=== PATIENT | male | born 1945 | race Caucasian/White ===

== ENCOUNTER → 2017-07-24 | Outpatient (CLI) | payer MEDICARE, BC ==
[~2017-07-24] MED LIST: REGADENOSON 0.4 MG/5 ML DISP.SYRIN. IV ONE
--- NOTE | 2017-07-24 13:40 | RAD ---
MR#: [id number] Date of Study: 07/24/2017 Ordering Physician: AVINASH PARRISH, Referring Physician: LIBIA MONTEJO Tech: SATISH Parra ARRT (R) (N) APPROVED REPORT Test Type: Pharmacological Stress Nurse/Tech: Paz Barrientos R.N. Test Indications: high calcium score Cardiac History: dm, family hx of cad Medications: see ehr Medical History: see ehr Resting ECG: sr Resting Heart Rate: 76 bpm Resting Blood Pressure: 138/70mmHg Pretest Chest Pain: No chest pain Nurse/Tech Notes lungs cta, heart tones regular, good radial pulse Consent: The procedure was explained to the patient in lay terms. Informed consent was witnessed. Neil eout was entered into [employer]. History and Stress Test performed by RT Ingrid Gregorio) (N) Pharm. Details Pharmacologic stress testing was performed using 0.4mg per 5ml of regadenoson given intravenously ove r 7-10 seconds. Stress Symptoms No chest pain or symptoms. POST EXERCISE Reason for Termination: Infusion complete Target HR: No Max HR: 105 bpm Max Blood Pressure: 165/74mmHg Chest Pain: No. Arrhythmia: Yes. PAC noted ST Change: No. INTERPRETATION Stress EKG Conclusion: Baseline EKG showed sinus rhythm. No ischemic changes at peak stress. No arr hythmias. Imaging Protocol IMAGE PROTOCOL: Rest Tc-99m/stress Tc-99m 1 day Rest: Stress: Viability: Radiopharm.Tc99m VcxqohctkPq28e Sestamibi Dose11.4mCi 33mCi Img Date 07/24/2017 07/24/2017 Inj-Img Alpn47hjr. 60min. Rest Admin Site:IV - Right AntecubitalAdministrator:SATISH Parra ARRT (R)(N) Stress Admin Site: IV - Right AntecubitalAdministrator: RT Ingrid Gregorio)(N) STRESS DATA End Diast. Vol.64.0mlAv. Heart Rate84.0bpm End Syst. Vol.20.0mlCO Index BSA0.0L/min Myocardial Isdn466.0gEject. Gqxkylik29.0% Stress Rates Pk. Fill Rate4.77EDV/secLVtime Pk. Fill 212.73msec Pk. Empty Rate5.00ESV/secLVtime Pk. Eject90.35msec 1/3 Pk. Fill0.74EDV/sec Stress Scores Regional WT0.00Summed WT0.00 Regional WM0.00Summed WM4.00 Study quality was good. Left Ventricular size was Normal at Rest and Stress. Lung uptake was Normal. Left Ventricular ejection fraction is 69%. The rest and stress images show normal perfusion, normal contraction and thickening. LV Perf. Quant 17 Seg. SSS4.00 17 Seg. SRS3.00 17 Seg. SDS3.00 Stress Defect Extent (% LAD)0.00Rest Defect Extent (% LAD)0.00Rev. Defect Extent (% LAD)0.00 Stress Defect Extent (% LCX) 22.50Rest Defect Extent (% LCX)10.00Rev. Defect Extent (% LCX)8.80 Stress Defect Extent (% RCA)0.00Rest Defect Extent (% RCA)11.10Rev. Defect Extent (% RCA)0.00 Stress Defect Extent (% CALISTA)4.80Rest Defect Extent (% CALISTA)5.00Rev. Defect Extent (% CALISTA)2.00 Conclusion 1. Regadenoson cardioisotope stress test did not show any evidence of ischemia or infarct. 2. Normal left ventricular systolic function with ejection fraction calculated at 69%. 3. Low risk for cardiac events. Signed by : Avinash Parrish, Electronically Approved : 07/24/2017 13:40:36
--- NOTE | 2017-07-24 14:54 | CARD ---
MR#: [id number] Date of Study: 07/24/2017 Ordering Physician: AVINASH CHUNG, Referring Physician: AVINASH CHUNG, Tech: APPROVED REPORT EXAM: Two-dimensional and M-mode echocardiogram with Doppler and color Doppler. Other Information Quality : Average INDICATION CAD 2D DIMENSIONS Left Atrium(2D)2.9 (1.6-4.0cm)IVSd1.1 (0.7-1.1cm) Aortic Root(2D)3.3 (2.0-3.7cm)LVDd4.4 (3.9-5.9cm) LVOT Diameter2.0 (1.8-2.4cm)PWd1.1 (0.7-1.1cm) LVDs2.9 (2.5-4.0cm)FS (%) 32.5 % SV52.2 mlLVEF(%)61.1 (>50%) Aortic Valve AoV Peak Jh.103.2cm/sAoV VTI23.8cm AO Peak GR.4.3mmHgLVOT Peak Jh.83.7cm/s LVOT VTI 19.36cmAO Mean GR.3mmHg EVGENY (VMAX)1.36gu3XZM (VTI)2.56cm2 Mitral Valve MV E Ldjjhogh28.3cm/sMV DECEL ZFAT535tr MV A Imleypgi66.7cm/sMV QNC81dm E/A Ratio0.7MVA (PHT)5.60cm2 TDI E/Lateral E'7.6E/Medial E'8.7 Tricuspid Valve TR P. Lgxytgjk046bg/sRAP CREPQLXG4gzNq TR Peak Gr.89ycRzZMAG78vyPz LEFT VENTRICLE The left ventricle is normal size. There is normal left ventricular wall thickness. Left ventricle sy stolic function is normal. The Ejection Fraction is 50-55%. There is normal LV segmental wall motion. Transmitral Doppler flow pattern is Grade I-abnormal relaxation pattern. RIGHT VENTRICLE The right ventricle is normal size. The right ventricular systolic function is normal. ATRIA The left atrium size is normal. The right atrium size is normal. The interatrial septum is intact wit h no evidence for an atrial septal defect or patent foramen ovale as noted on 2-D or Doppler imaging. AORTIC VALVE The aortic valve is mildly calcified. Doppler and Color Flow revealed no significant aortic regurgita tion. There is no significant aortic valvular stenosis. MITRAL VALVE The mitral valve is calcified but opens well. There is no evidence of mitral valve prolapse. There is no mitral valve stenosis. Doppler and Color-flow revealed mild mitral regurgitation. TRICUSPID VALVE The tricuspid valve is normal in structure and function. Doppler and Color Flow revealed trace tricus pid regurgitation. There is no pulmonary hypertension. The PA pressure was estimated at 19 mmHg. Ther e is no tricuspid valve prolapse or vegetation. PULMONIC VALVE The pulmonic valve is borderline thickened. Doppler and Color Flow revealed mild pulmonic valvular re gurgitation. There is no pulmonic valvular stenosis. GREAT VESSELS The aortic root is normal in size. The ascending aorta is normal in size. The IVC is normal in size a nd collapses >50% with inspiration. PERICARDIAL EFFUSION There is no pleural effusion. There is no evidence of significant pericardial effusion. Critical Notification Critical Value: No <Conclusion> Left ventricle systolic function is normal. The Ejection Fraction is 50-55%. There is normal LV segmental wall motion. Transmitral Doppler flow pattern is Grade I-abnormal relaxation pattern. Mld mitral regurgitation. Trace tricuspid regurgitation. The PA pressure was estimated at 19 mmHg. There is no evidence of significant pericardial effusion. Signed by : Avinash Chung, Electronically Approved : 07/24/2017 14:53:10
== END | disposition home or self-care (01) ==
LOC: NM 07:42
PROVIDERS: ATTEND Internal Medicine Cardiovascular Disease
DX: I08.1 Rheumatic disorders of both mitral and tricuspid valves (principal); I25.10 Atherosclerotic heart disease of native coronary artery without angina pectoris; R93.1 Abnormal findings on diagnostic imaging of heart and coronary circulation
CPT/HCPCS: 78452; 93017; 93306; 96374; 96375; 96376; A9500; J2785

== ENCOUNTER → 2018-12-03 | Outpatient (CLI) | payer MEDICARE, BC ==
--- NOTE | 2018-12-03 09:41 | CARD ---
MR#: [id number] Date of Study: 12/03/2018 Ordering Physician: AVINASH CHUNG, Referring Physician: AVINASH CHUNG Tech: Rhonda Wilkerson RDCS APPROVED REPORT EXAM: Two-dimensional and M-mode echocardiogram with Doppler and color Doppler. Other Information Quality : AverageHR: 67bpm Rhythm : NSR INDICATION Hypertension/HCVD 2D DIMENSIONS RVDd2.5 (2.9-3.5cm)Left Atrium(2D)2.7 (1.6-4.0cm) IVSd1.0 (0.7-1.1cm)Aortic Root(2D)3.9 (2.0-3.7cm) LVDd4.1 (3.9-5.9cm)LVOT Diameter2.2 (1.8-2.4cm) PWd1.0 (0.7-1.1cm)LVDs2.9 (2.5-4.0cm) FS (%) 29.3 %SV43.2 ml LVEF(%)56.7 (>50%) M-Mode DIMENSIONS Left Atrium(MM)2.58 (2.5-4.0cm)Aortic Root3.67 (2.2-3.7cm) Aortic Valve AoV Peak Jh.122.2cm/sAoV VTI26.0cm AO Peak GR.6.0mmHgLVOT Peak Jh.75.4cm/s AO Mean GR.3mmHgAVA (VMAX)2.44cm2 EVGENY (VTI)2.40cm2 Mitral Valve MV E Nfzrfglw12.5cm/sMV DECEL YNNI185ca MV A Tnevoaon31.4cm/sE/A Ratio0.6 MV A Tfhmgbqg331ac Pulmonary Valve PV Peak Saaylqrn46.2cm/s Tricuspid Valve TR P. Xjayfnap513kw/sRAP CXRDJSYO6dpBj TR Peak Gr.53dlYcSFYI74yxJo LEFT VENTRICLE The left ventricle is normal size. There is normal left ventricular wall thickness. The left ventricu lar systolic function is normal. The Ejection Fraction is 55-60%. There is normal LV segmental wall m otion. Transmitral Doppler flow pattern is Grade I-abnormal relaxation pattern. RIGHT VENTRICLE The right ventricle is normal size. There is normal right ventricular wall thickness. The right ventr icular systolic function is normal. ATRIA The left atrium size is normal. The right atrium size is normal. The interatrial septum is intact wit h no evidence for an atrial septal defect or patent foramen ovale as noted on 2-D or Doppler imaging. AORTIC VALVE The aortic valve is normal in structure and function. The aortic valve is trileaflet. Doppler and Col or Flow revealed no significant aortic regurgitation. There is no significant aortic valvular stenosi s. There is no aortic valvular vegetation. MITRAL VALVE The mitral valve is normal in structure and function. There is no evidence of mitral valve prolapse. There is no mitral valve stenosis. Doppler and Color-flow revealed trace to mild mitral regurgitation . TRICUSPID VALVE The tricuspid valve is normal in structure and function. Doppler and Color Flow revealed trace tricus pid regurgitation. The PA pressure was estimated at 32 mmHg. There is no tricuspid valve prolapse or vegetation. There is no tricuspid valve stenosis. PULMONIC VALVE The pulmonary valve is normal in structure and function. Doppler and Color Flow revealed trace pulmon ic valvular regurgitation. There is no pulmonic valvular stenosis. GREAT VESSELS The aortic root is mildly enlarged. The ascending aorta is normal in size. The IVC is normal in size and collapses >50% with inspiration. PERICARDIAL EFFUSION There is no evidence of significant pericardial effusion. Critical Notification Critical Value: No <Conclusion> The left ventricular systolic function is normal. The Ejection Fraction is 55-60%. There is normal LV segmental wall motion. Transmitral Doppler flow pattern is Grade I-abnormal relaxation pattern. Trace to mild mitral regurgitation. Trace tricuspid regurgitation. The PA pressure was estimated at 32 mmHg. There is no evidence of significant pericardial effusion. Signed by : Avinash Chung, Electronically Approved : 12/03/2018 09:40:56
== END | disposition home or self-care (01) ==
LOC: ECHO 08:38
PROVIDERS: ATTEND Internal Medicine Cardiovascular Disease
DX: I34.0 Nonrheumatic mitral (valve) insufficiency (principal); I11.9 Hypertensive heart disease without heart failure
CPT/HCPCS: 93306

== ENCOUNTER 2019-06-07 13:56 | Inpatient (IN) | payer MEDICARE, BC ==
[~2019-06-07 13:56] MED LIST changes: +ACYC400T PO; +ASCO-78 PO; +ATOR40TA59 PO; +BRIM5DRO2 OP; +CHOL100013 PO; +DICL100G18 TP; +INSU100I32 SQ; +INSU100V31 SQ; +METF500T11 PO; +MULT-245 PO; +NITR0.4T24 SL; +PRED15SO24 PO; +PRED5DRO16 OP; -REGADENOSON 0.4 MG/5 ML DISP.SYRIN. IV ONE; +SIMV20TA18 PO; +TICA90TA PO
[2019-06-07] MEDS ORDERED: DEXTROSE 50% 25 GM / 50ML DISP.SYRIN. IV PRN (17:00)
[2019-06-07] MEDS ORDERED: IV DEXTROSE 5% 250 ML BAG. IV PRN (17:00)
[2019-06-07 17:02] VITALS: BP 142/68
[2019-06-07 19:25] VITALS: BP 132/73
[2019-06-07] MEDS ORDERED: NITROGLYCERIN SUBLINGUAL 0.4 MG BOTTLE OF 25. SL PRN (20:45)
[2019-06-07] MEDS: TIMOLOL 0.5% OPHTH SOLUTION 5ML BOTTLE. OU SCH (21:00)
[2019-06-07] MEDS: DICLOFENAC SODIUM 1% TOPICAL GEL 100GM TUBE. TP SCH (21:00)
[2019-06-07] MEDS: BRIMONIDINE 0.2% OPHTH SOLUTION 5ML BOTTLE. OU SCH (21:00)
[2019-06-07] MEDS: ACYCLOVIR 200 MG CAPSULE. PO SCH (21:00)
[2019-06-07] MEDS: ATORVASTATIN CALCIUM 40 MG TABLET. PO SCH (21:00)
[2019-06-07] MEDS: TICAGRELOR 90 MG TABLET. PO SCH (21:00)
[2019-06-07] MEDS: INSULIN GLARGINE SYRINGE. SQ SCH (21:29)
[2019-06-07 23:25] VITALS: BP 140/78
[2019-06-08 03:25] VITALS: BP 141/76
[2019-06-08 03:44] LABS: BASO % 0 % (0-3); EOS % 1 % (0-3); HEMOGLOBIN 13.3 g/dL (13.0-17.5); LYMPH % 11 % (24-48); MEAN CORPUSCULAR HEMOGLOBIN 32 pg (25-35); MEAN CORPUSCULAR HGB CONC 35 g/dL (31-37); MEAN CORPUSCULAR VOLUME 92 fL (79-100); MONO # 0.5 x10^3/uL (0.0-1.1); MONO % 5 % (0-9); NEUT % 83 % (31-73); PLATELET COUNT 194 x10^3/uL (140-400); RED BLOOD COUNT 4.14 x10^6/uL (4.30-5.70); RED CELL DISTRIBUTION WIDTH 14.6 % (11.5-14.5); WHITE BLOOD COUNT 9.6 x10^3/uL (4.0-11.0)
[2019-06-08 04:09] LABS: ALBUMIN 3.3 g/dL (3.4-5.0); ALBUMIN/GLOBULIN RATIO 1.2 (1.0-1.7); CALCIUM 8.4 mg/dL (8.5-10.1); CREATININE 1.1 mg/dL (0.7-1.3); POTASSIUM 4.1 mmol/L (3.5-5.1); TOTAL BILIRUBIN 0.5 mg/dL (0.2-1.0); TOTAL PROTEIN 6.1 g/dL (6.4-8.2)
[2019-06-08 07:15] VITALS: BP 128/63
[2019-06-08] MEDS: INSULIN LISPRO 300 UNITS/3 ML VIAL. SQ SCH ×3 (08:00→18:00)
[2019-06-08] MEDS: BRIMONIDINE 0.2% OPHTH SOLUTION 5ML BOTTLE. OU SCH ×2 (09:00→21:50)
[2019-06-08] MEDS ORDERED: PREDNISOLONE ACETATE OP SCH (09:00)
[2019-06-08] MEDS: DICLOFENAC SODIUM 1% TOPICAL GEL 100GM TUBE. TP SCH ×2 (09:00→21:00)
[2019-06-08] MEDS: TIMOLOL 0.5% OPHTH SOLUTION 5ML BOTTLE. OU SCH ×2 (09:00→21:50)
[2019-06-08] MEDS: TICAGRELOR 90 MG TABLET. PO SCH ×2 (09:25→21:48)
[2019-06-08] MEDS: ACYCLOVIR 200 MG CAPSULE. PO SCH ×2 (09:26→21:48)
[2019-06-08] MEDS: CHOLECALCIFEROL (VITAMIN D3) 1,000 UNIT TABLET PO SCH (09:26)
[2019-06-08] MEDS: metFORMIN XR 500 MG TAB.ER.24H PO SCH (09:26)
[2019-06-08] MEDS: MULTIVITAMIN with MINERAL TABLET. PO SCH (09:26)
[2019-06-08] MEDS: ASCORBIC ACID 500 MG TABLET PO SCH (09:26)
--- NOTE | 2019-06-08 10:54 | NUR ---
SW following pt for dc planning. Chart reviewed. Pt lives at home with family. PT/OT/ST ordered. No other notes to review at this time. SW will be available as needed.
[2019-06-08 11:02] VITALS: BP 151/74
--- NOTE | 2019-06-08 11:08 | HP ---
ADMIT DATE: HISTORY OF PRESENT ILLNESS: The patient is a 73-year-old male patient who was brought to the Emergency Room of [facility] with a complaint of being dizzy, lightheaded, and vomiting. The patient woke up this morning while he was pulling up his pants, he heard a popping sound in his ear. He began to get very dizzy, which he describes as a room spinning sensation. This was followed by vomiting. He was feeling normal prior to this episode. He recently had a corneal transplant last week. He has had a heart attack earlier this year. He denied any shortness of breath, chest pain, or diaphoresis. According to his , the patient became unable to walk. She tried to help him and his brother came also to help him, but they could not and therefore, they called the ambulance and was brought to the Emergency Room of [facility] where he was evaluated. When he arrived there, he was still dizzy and vomiting. He was extensively investigated there and his CT scan of the head showed that he has mild bilateral periventricular white matter hypodensities, likely chronic, small vessel ischemic disease, no evidence of acute intracranial hemorrhage, no extra-axial fluid collection, no mass effect or midline shift, ventricular size appropriate. Basal cisterns are patent. There is no fracture identified. Cotton-white differentiation is preserved. Globes and orbits are within normal limits. Paranasal sinuses and mastoid air cells are clear and therefore, the patient was transferred to [facility] to do an MRI and to consult the Neurology team. PAST MEDICAL HISTORY: Significant for diabetes mellitus, hypertension, hyperlipidemia, coronary artery disease, status post MN, stent deployment on 03/31/2019. He has also chronic constipation and benign prostatic hypertrophy. He has shingles involving his left eye for which he underwent corneal transplant. He is also known to have glaucoma. PAST SURGICAL HISTORY: Significant for left eye corneal transplant. He had ear surgery, hernia repair, and tonsillectomy. He had also PCI with stent deployment in March of this year. ALLERGIES: He has no known drug allergies. MEDICATIONS: He is currently on the following medications: He apparently gets all his medications from [facility] in [place]. FAMILY HISTORY: He has 1 sister who at age of 52 because of Parkinson disease, complication of diabetes, has 5 brothers, 1 of them has coronary artery disease and open heart surgery and others have peripheral vascular disease. His father at the age of 66 because of diabetes mellitus and mother at age 66 because of complication of surgery. SOCIAL HISTORY: He is , has no children. He quit smoking in 1991. He used to smoke 4 packs a day and smoked since he was 20 years old. He does not drink alcohol or use any recreational drugs. 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 REVIEW OF SYSTEMS: The patient denied any blurring of vision, but he has corneal transplant and glaucoma. Denied any macular degeneration. Denied any earache, tinnitus, or sensorineural deafness. Did hear a pop in his left ear and since then he developed severe dizziness and feels things spinning around and difficulty walking. He did have some nausea and vomiting, but denied any hematemesis, melena, or hematochezia. Did have also a problem with urine retention, required straight catheterization. Denied any chest pain, shortness of breath, orthopnea, or paroxysmal nocturnal dyspnea. Denied any cough, phlegm, or hemoptysis. PHYSICAL EXAMINATION: GENERAL: On arrival to [facility], he was somewhat pale. No jaundice, cyanosis, or thyromegaly. No jugular venous distention. No lower limb edema. VITAL SIGNS: His heart rate was 69, blood pressure was 141/74, temperature was 97.4, respiratory rate was 19, and oxygen saturation was 100% on room air. HEAD, EYES, EARS, NOSE, AND THROAT: Showed normocephalic and atraumatic. NECK: Supple. HEART: Showed normal first and second heart sounds. No gallop or murmur. CHEST: Clear to auscultation. No crepitation or rhonchi. ABDOMEN: Distended, soft, nontender. No guarding or rigidity. No organomegaly. All hernial orifices intact. Bowel sounds normal. 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 EXTREMITIES: He moves extremities without difficulty. He apparently is independent, climbing about [address] in front of their house before, but now he is unable to stand or walk. LABORATORY DATA: He has had lab work done in the Emergency Room showed that his white cell count was 10,000, hemoglobin 13.6, hematocrit 40, MCV 93, and platelet count of 200,000 with normal manual differential. His chemistry showed a serum sodium 141, potassium 4.7, chloride 106, bicarbonate 25, anion gap of 10, BUN 20, creatinine 1.2, and estimated GFR was 59 mL per minute. His glucose was 253 and calcium was 8.6. Total bilirubin, ALT, and alkaline phosphatase were normal. Total protein was 6.4, albumin was 3.6. His toxic screen was negative. His urinalysis was essentially unremarkable. The CT scan of the head showed the patient has mild bilateral periventricular white matter hypodensities, likely chronic small vessel ischemic disease, no evidence of acute intracranial hemorrhage, no extraaxial fluid collection, no mass effect or midline shift, ventricular size appropriate. Basal cisterns are patent. No fracture is identified. Cotton-white differentiation is preserved. Globes and orbits are within normal limits. Paranasal sinuses and mastoid air cells are clear. Therefore, the patient was admitted to [facility] to consult the neurologist and arrange for an MRI as I am concerned that he might have cerebellar stroke given his inability to walk. I will also check his Doppler ultrasound and fasting lipid profile and decide the further management accordingly. TIGRE SONG MD DR: MANISHA/tameka JOB#: [id number] / [id number]
--- NOTE | 2019-06-08 12:22 | RAD ---
EXAM: Carotid Doppler sonogram. HISTORY: Dizziness. TECHNIQUE: Cotton scale and color Doppler sonographic evaluation of the neck with spectral waveform analysis was performed and static images are submitted for review. FINDINGS: There is intimal thickening and atherosclerotic plaque throughout the carotid bifurcations. The peak systolic velocity within the right common carotid artery is 108 cm/sec. The peak systolic velocity within the right internal carotid artery is 85 cm/sec and the end diastolic velocity within the right internal carotid artery is 29 cm/sec. The right ICA/CCA ratio is 0.78. The peak systolic velocity within the left common carotid artery is 114 cm/sec. The peak systolic velocity within the left internal carotid artery is 85 cm/sec and the end diastolic velocity within the left internal carotid artery is 29 cm/sec. The left ICA/CCA ratio is 0.75. There is normal antegrade flow within both vertebral arteries. IMPRESSION: No Doppler evidence of hemodynamically significant stenosis within the carotid or internal carotid arteries. PQRS Compliance Statement - Stenosis calculations for CT, MR and conventional angiography are based upon measurement of the distal ICA diameter in accordance with the NASCET methodology. Stenosis calculations for carotid ultrasound studies are derived from validated velocity criteria which are known to correlate with the NASCET methodology. Electronically signed by: Thania Crouch MD (06/08/2019 12:18 PM) [place] [id number]
[2019-06-08 15:15] VITALS: BP 151/71
--- NOTE | 2019-06-08 15:16 | PDOC2 ---
NEUROLOGY CONSULT Date of Admission Date of Admission DATE: 06/08/19 TIME: 15:01 Reason for Consult Reason for Consult: IMPRESSION: Persistent dizziness since 06/07/19. DM. HTN. HLD. Recent STEMI in 03/21 s/p stent placement. Left eye s/p surgery with dilated pupil since. Cognitive impairment. RECOMMENDATIONS/PLAN: He has been treated with Ticagrelol. Continue Lipitor HS. Brain MRI w/o contrast. Lab: see orders. Treat medical diseases. Discussed with his and son at bedside on 06/08/19. HISTORY OF THE PRESENT ILLNESS: This is a 73-year-old male patient with recent STEMI with cardiac stent placement in 03/21. He developed symptoms of severe dizziness associated with nausea and vomiting on 06/07/19. He was noted to have perspiration during his episodes of dizziness. His symptoms persistent and he is still not able to stand up or walk on 06/08/19. So Neurology was requested for consultation. PAST MEDICAL HISTORY: Diabetes mellitus, hypertension, hyperlipidemia, coronary artery disease, status post NJ, stent deployment on 03/31/2019. He has also chronic constipation and benign prostatic hypertrophy. 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 He is also known to have glaucoma. PAST SURGICAL HISTORY: Left eye corneal transplant. He had ear surgery, hernia repair, and tonsillectomy. He had also PCI with stent deployment in March of this year. ALLERGIES: No known drug allergies. FAMILY HISTORY: His sister at age of 52 because of Parkinson disease, complication of diabetes, has 5 brothers, 1 of them has coronary artery disease and open heart surgery and others have peripheral vascular disease. His father at the age of 66 because of diabetes mellitus and mother at age 66 because of complication of surgery. SOCIAL HISTORY: He is , has no children. He quit smoking in 1991. He used to smoke 4 packs a day and smoked since he was 20 years old. He does not drink alcohol or use any recreational drugs. 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 MEDICATIONS: Refer to MAR REVIEW OF SYSTEMS: Constitutional: No malnutrition, weight loss, cachexia. Head: No traumatic brain or head injury. Skin: No edema, or rash. Ear: No infection. Eyes: No vision loss or color blindness. Nose: No bleeding or purulent discharges. Hearing: No hearing decrease. Neck: No injury. Cardiac: NJ, CAD, HTN, HLD. Pulmonary: No COPD. GI: No GI ulcer, GI bleeding. Urinary/genital: No dysuria, incontinence, urinary retention. Endocrinologic: Diabetes Mellitus. Skeletomuscular: No muscular atrophy. Neurological: see HP. Psychiatric: Denies drug use/abuse. Otherwise, not [id number] review of systems. PHYSICAL EXAMINATION: General appearance is in subacute distress. HEENT: Normocephalic and nontraumatic. Left pupil dilated s/p surgery. Nose, ears, and throat are unremarkable. Neck is supple. No lymphadenopathy. No bruits are heard over the carotid artery. No crepitus. Cardiovascular: S1, S2, regular rate and rhythm. Pulmonary: Clear to auscultation bilaterally. Abdomen: Bowel sounds are positive. Abdomen is soft, nontender, and nondistended. Extremities: No rash, lesions, or edema. No restriction of range of motion NEUROLOGICAL EXAMINATION: Alert Partially oriented to time, but knew place and person. Right pupil 2 mm reactive to light. Left 4 mm not reactive to light stimulation. EOMI. CN: no focal findings. Muscle tone: within normal. Muscle strength: 5 DTR: 2 Plantar reflex: Neutral response bilaterally Gait: not examined in bed. Sensory exam: no abnormal findings. No cerebellar signs elicited. F-T-N test accurate. Current Medications Current Medications Current Medications Dextrose (Dextrose 50%-Water Syringe) 12.5 gm PRN Q15MIN PRN IV SEE COMMENTS; Start 06/07/19 at 17:00 Dextrose 250 ml PRN Q15MIN PRN IV SEE COMMENTS; Start 06/07/19 at 17:00; Status UNV Atorvastatin Calcium (Lipitor) 40 mg QHS PO ; Start 06/07/19 at 21:00 Diclofenac Sodium (Voltaren) 1 amy BID TP ; Start 06/07/19 at 21:00 Metformin HCl (Glucophage Xr) 500 mg DAILYWBKFT PO Last administered on 06/08/19at 09:26; Start 06/08/19 at 08:00 Nitroglycerin (Nitrostat) 0.4 mg PRN Q5MIN PRN SL CHEST PAIN; Start 06/07/19 at 20:45 Ticagrelor (Brilinta) 90 mg BID PO Last administered on 06/08/19 09:25; Start 06/07/19 at 21:00 Acyclovir (Zovirax) 400 mg BID PO Last administered on 06/08/19 09:26; Start 06/07/19 at 21:00 Ascorbic Acid (Vitamin C) 500 mg DAILY PO Last administered on 06/08/19 09:26; Start 06/08/19 at 09:00 Brimonidine Tartrate (Alphagan) 1 drop BID OU ; Start 06/07/19 at 21:00 Vitamin D (Vitamin D3) 1,000 unit DAILY PO Last administered on 06/08/19 09:26; Start 06/08/19 at 09:00 Insulin Human Lispro (HumaLOG) 3 units TIDWMEALS SQ Last administered on 06/08/19 13:25; Start 06/08/19 at 08:00 Insulin Glargine (Lantus Syringe) 9 unit QHS SQ Last administered on 06/07/19 21:29; Start 06/07/19 at 21:00 Multivitamins (Thera M Plus) 1 tab DAILY PO Last administered on 06/08/19 09:26; Start 06/08/19 at 09:00 Non-Formulary Medication (Prednisolone Acetate ) 5 ml DAILY OP ; Start 06/08/19 at 09:00; Status UNV Timolol Maleate (Timoptic 0.5% Ophth) 1 drop BID OU ; Start 06/07/19 at 21:00 Active Scripts Active Nitrostat (Nitroglycerin) 0.4 Mg Tab.subl 0.4 Mg SL PRN Q5MIN PRN Atorvastatin Calcium 40 Mg Tablet 40 Mg PO QHS Brilinta (Ticagrelor) 90 Mg Tablet 90 Mg PO BID Reported Prednisolone Acetate 5 Ml Drops.susp 5 Ml OP DAILY Voltaren (Diclofenac Sodium) 100 Gm Gel..gram. 1 Gm TP BID Multi Vitamin Daily (Multivitamin) 1 Each Tablet 1 Each PO DAILY Vitamin C (Ascorbate Calcium) 500 Mg Tablet 500 Mg PO DAILY Vitamin D (Cholecalciferol (Vitamin D3)) 1,000 Unit Capsule 1 Cap PO DAILY Acyclovir 400 Mg Tablet 400 Mg PO BID Combigan Eye Drops (Brimonidine Tartrate/Timolol) 5 Ml Drops 5 Ml OP BID Basaglar Kwikpen U-100 (Insulin Glargine,Hum.rec.anlog) 100 Unit/1 Ml Insuln.pen 9 Unit SQ HS Novolog (Insulin Aspart) 100 Unit/1 Ml Vial 3 Unit SQ TIDWMEALS Metformin Hcl Er (Metformin Hcl) 500 Mg Tab.er.24h 500 Mg PO DAILYWBKFT Allergies Allergies: Allergies Coded Allergies Type Severity Reaction Last Updated Verified No Known Drug Allergies 07/24/17 No ROS Review of System The patient denies any associated fevers, chills, headache, ear pain, rhinorrhea, sore throat, stiff neck, productive cough, chest pain, shortness of breath, back or flank pain, abdominal pain, nausea, vomiting, diarrhea, constipation, dysuria, rash, numbness, weakness, tingling, incontinence, difficulty ambulating, or diaphoresis. Physical Exam Physical Exam General: Well developed, well nourished, no acute distress, well appearing HEENT: Pupils equally round and reactive to light, EOMI, no discharge, normal conjunctiva Neck: Supple, no nuchal rigidity, no JVD, trachea midline, no tenderness Cardiac: RRR, no murmurs, no gallops, no rubs Chest/Lungs: CTAB, no wheeze, no rhonchi, no crackles Abdomen: soft, non-distended, no guarding, no peritoneal signs, non-tender Back: No tenderness Extremities: no edema, pulses intact, non-tender,capillary refill <3 sec bilateral upper and lower extremities, Neuro: Alert and oriented x 4, no focal deficits, normal speech Vitals Vitals: Vital Signs Date Time Temp Pulse Resp B/P (MAP) Pulse Ox O2 Delivery O2 Flow Rate FiO2 06/08/19 11:02 98.3 97 20 151/74 (99) 94 Room Air 98.3 Labs Labs Laboratory Tests Test 06/07/19 16:58 06/07/19 21:17 06/08/19 03:20 06/08/19 08:09 Glucose (Fingerstick) 133 mg/dL (70-99) 132 mg/dL (70-99) 146 mg/dL (70-99) White Blood Count 9.6 x10^3/uL (4.0-11.0) Red Blood Count 4.14 x10^6/uL (4.30-5.70) Hemoglobin 13.3 g/dL (13.0-17.5) Hematocrit 38.0 % (39.0-53.0) Mean Corpuscular Volume 92 fL (79-100) Mean Corpuscular Hemoglobin 32 pg (25-35) Mean Corpuscular Hemoglobin Concent 35 g/dL (31-37) Red Cell Distribution Width 14.6 % (11.5-14.5) Platelet Count 194 x10^3/uL (140-400) Neutrophils (%) (Auto) 83 % (31-73) Lymphocytes (%) (Auto) 11 % (24-48) Monocytes (%) (Auto) 5 % (0-9) Eosinophils (%) (Auto) 1 % (0-3) Basophils (%) (Auto) 0 % (0-3) Neutrophils # (Auto) 8.0 x10^3/uL (1.8-7.7) Lymphocytes # (Auto) 1.0 x10^3/uL (1.0-4.8) Monocytes # (Auto) 0.5 x10^3/uL (0.0-1.1) Eosinophils # (Auto) 0.0 x10^3/uL (0.0-0.7) Basophils # (Auto) 0.0 x10^3/uL (0.0-0.2) Sodium Level 142 mmol/L (136-145) Potassium Level 4.1 mmol/L (3.5-5.1) Chloride Level 108 mmol/L (98-107) Carbon Dioxide Level 24 mmol/L (21-32) Anion Gap 10 (6-14) Blood Urea Nitrogen 18 mg/dL (8-26) Creatinine 1.1 mg/dL (0.7-1.3) Estimated GFR (Cockcroft-Gault) 66.0 BUN/Creatinine Ratio 16 (6-20) Glucose Level 176 mg/dL (70-99) Calcium Level 8.4 mg/dL (8.5-10.1) Total Bilirubin 0.5 mg/dL (0.2-1.0) Aspartate Amino Transf (AST/SGOT) 15 U/L (15-37) Alanine Aminotransferase (ALT/SGPT) 19 U/L (16-63) Alkaline Phosphatase 75 U/L (46-116) Total Protein 6.1 g/dL (6.4-8.2) Albumin 3.3 g/dL (3.4-5.0) Albumin/Globulin Ratio 1.2 (1.0-1.7) Triglycerides Level 74 mg/dL (0-150) Cholesterol Level 118 mg/dL (0-200) LDL Cholesterol, Calculated 64 mg/dL (0-100) VLDL Cholesterol, Calculated 15 mg/dL (0-40) Non-HDL Cholesterol Calculated 79 mg/dL (0-129) HDL Cholesterol 39 mg/dL (40-60) Cholesterol/HDL Ratio 3.0 Vitamin B12 Level 410 pg/mL (247-911) Thyroid Stimulating Hormone (TSH) 1.386 uIU/mL (0.358-3.74) Test 06/08/19 11:33 Glucose (Fingerstick) 249 mg/dL (70-99) Laboratory Tests Test 06/07/19 16:58 06/07/19 21:17 06/08/19 03:20 06/08/19 08:09 Glucose (Fingerstick) 133 mg/dL (70-99) 132 mg/dL (70-99) 146 mg/dL (70-99) White Blood Count 9.6 x10^3/uL (4.0-11.0) Red Blood Count 4.14 x10^6/uL (4.30-5.70) Hemoglobin 13.3 g/dL (13.0-17.5) Hematocrit 38.0 % (39.0-53.0) Mean Corpuscular Volume 92 fL (79-100) Mean Corpuscular Hemoglobin 32 pg (25-35) Mean Corpuscular Hemoglobin Concent 35 g/dL (31-37) Red Cell Distribution Width 14.6 % (11.5-14.5) Platelet Count 194 x10^3/uL (140-400) Neutrophils (%) (Auto) 83 % (31-73) Lymphocytes (%) (Auto) 11 % (24-48) Monocytes (%) (Auto) 5 % (0-9) Eosinophils (%) (Auto) 1 % (0-3) Basophils (%) (Auto) 0 % (0-3) Neutrophils # (Auto) 8.0 x10^3/uL (1.8-7.7) Lymphocytes # (Auto) 1.0 x10^3/uL (1.0-4.8) Monocytes # (Auto) 0.5 x10^3/uL (0.0-1.1) Eosinophils # (Auto) 0.0 x10^3/uL (0.0-0.7) Basophils # (Auto) 0.0 x10^3/uL (0.0-0.2) Sodium Level 142 mmol/L (136-145) Potassium Level 4.1 mmol/L (3.5-5.1) Chloride Level 108 mmol/L (98-107) Carbon Dioxide Level 24 mmol/L (21-32) Anion Gap 10 (6-14) Blood Urea Nitrogen 18 mg/dL (8-26) Creatinine 1.1 mg/dL (0.7-1.3) Estimated GFR (Cockcroft-Gault) 66.0 BUN/Creatinine Ratio 16 (6-20) Glucose Level 176 mg/dL (70-99) Calcium Level 8.4 mg/dL (8.5-10.1) Total Bilirubin 0.5 mg/dL (0.2-1.0) Aspartate Amino Transf (AST/SGOT) 15 U/L (15-37) Alanine Aminotransferase (ALT/SGPT) 19 U/L (16-63) Alkaline Phosphatase 75 U/L (46-116) Total Protein 6.1 g/dL (6.4-8.2) Albumin 3.3 g/dL (3.4-5.0) Albumin/Globulin Ratio 1.2 (1.0-1.7) Triglycerides Level 74 mg/dL (0-150) Cholesterol Level 118 mg/dL (0-200) LDL Cholesterol, Calculated 64 mg/dL (0-100) VLDL Cholesterol, Calculated 15 mg/dL (0-40) Non-HDL Cholesterol Calculated 79 mg/dL (0-129) HDL Cholesterol 39 mg/dL (40-60) Cholesterol/HDL Ratio 3.0 Vitamin B12 Level 410 pg/mL (247-911) Thyroid Stimulating Hormone (TSH) 1.386 uIU/mL (0.358-3.74) Test 06/08/19 11:33 Glucose (Fingerstick) 249 mg/dL (70-99) JERRELL VELASQUEZ MD Jun 08, 2019 15:16
--- NOTE | 2019-06-08 16:33 | RAD ---
MRI of the brain without contrast 06/08/2019 Clinical History: Dizziness. Technique: Unenhanced T1-weighted sagittal and axial, T2-weighted axial and coronal and FLAIR, gradient echo and diffusion-weighted axial images of the brain were obtained. Findings: Comparison is made to the patient's CT scan of the head dated 06/07/2019. There is generalized parenchymal atrophy. Patchy, confluent and multiple focal areas of increased signal intensity are seen within the periventricular and subcortical white matter of both cerebral hemispheres on the FLAIR and T2-weighted images consistent with areas of small vessel ischemic disease. Areas of restricted diffusion are seen involving the left aspect of the bret, the left brachium pontis and anterior aspect of the left cerebellum consistent with areas of acute ischemia/infarction. These measure 3 mm to 1.5 cm in size. There is mild surrounding edema without evidence of significant mass effect. No additional acute parenchymal abnormality is seen. No extra-axial fluid collection is noted. Mild mucosal thickening in seen scattered throughout the paranasal sinuses. Normal flow voids are seen within the major vascular structures surrounding the brain parenchyma. On the sagittal images of the brain incomplete segmentation is seen involving the C2-3 vertebrae, anteriorly. A focal central disc osteophyte complex is seen at C3-4 which measures approximately 4 mm in AP diameter. This appears to result in moderate to severe central spinal canal stenosis with moderate to severe cord impingement. Impression: Areas of acute ischemia/infarction are seen involving the left aspect of the bret, left brachium pontis and the anterior left cerebellar hemisphere. There is surrounding edema without significant mass effect. These findings were discussed with the patient's nurse. FOR INTERNAL CODING PURPOSES RESULT CODE: (C) Electronically signed by: Galen Benson MD (06/08/2019 4:31 PM) [id number]
--- NOTE | 2019-06-08 16:33 | NUR ---
Left message with answering service for Karoline, message received from MRI acute stroke in left cerebellum and bret. Dr Soliman was informed as well
[2019-06-08] MEDS: ASPIRIN CHEWABLE 81 MG TABLET. PO SCH (17:52)
--- NOTE | 2019-06-08 19:18 | PDOC2 ---
NEUROLOGY CONSULT Date of Admission Date of Admission DATE: 06/08/19 TIME: 19:11 Reason for Consult Reason for Consult: Acute/subacute in left brachium pontis, and left cerebellar, multiple. Persistent dizziness since am of 06/07/19. Metabolic encephalopathy. DM. Hyperglycemia. HTN. HLD. CAD. Recent STEMI in 03/21 s/p stent placement. Left eye s/p surgery with dilated pupil since. Cognitive impairment. Shingles, recently. RECOMMENDATIONS/PLAN: He has been treated with Ticagrelol. Continue Lipitor HS. ASA 81 mg daily. Brain MRI w/o contrast performed. Carotid A US + Doppler. Echo + Bubble study. Lab: see orders. Treat medical diseases. OT/PT. Please consult Cardiology if we can change to Plavix after a few days. Discussed with his and son at bedside in the morning on 06/08/19. Discussed with his and sister in a great detail again and showed them MRI findings in pm on 06/08/19. HISTORY OF THE PRESENT ILLNESS: This is a 73-year-old male patient with recent STEMI with cardiac stent placement in 03/21. He developed symptoms of severe dizziness associated with nausea and vomiting on 06/07/19. He was noted to have perspiration during his episodes of dizziness. His symptoms persistent and he is still not able to stand up or walk on 06/08/19. So Neurology was requested for consultation. PAST MEDICAL HISTORY: Diabetes mellitus, hypertension, hyperlipidemia, coronary artery disease, status post ND, stent deployment on 03/31/2019. He has also chronic constipation and benign prostatic hypertrophy. 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 He is also known to have glaucoma. PAST SURGICAL HISTORY: Left eye corneal transplant. He had ear surgery, hernia repair, and tonsillectomy. He had also PCI with stent deployment in March of this year. ALLERGIES: No known drug allergies. FAMILY HISTORY: His sister at age of 52 because of Parkinson disease, complication of diabetes, has 5 brothers, 1 of them has coronary artery disease and open heart surgery and others have peripheral vascular disease. His father at the age of 66 because of diabetes mellitus and mother at age 66 because of complication of surgery. SOCIAL HISTORY: He is , has no children. He quit smoking in 1991. He used to smoke 4 packs a day and smoked since he was 20 years old. He does not drink alcohol or use any recreational drugs. 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 MEDICATIONS: Refer to MAR REVIEW OF SYSTEMS: Constitutional: No malnutrition, weight loss, cachexia. Head: No traumatic brain or head injury. Skin: No edema, or rash. Ear: No infection. Eyes: No vision loss or color blindness. Nose: No bleeding or purulent discharges. Hearing: No hearing decrease. Neck: No injury. Cardiac: ND, CAD, HTN, HLD. Pulmonary: No COPD. GI: No GI ulcer, GI bleeding. Urinary/genital: No dysuria, incontinence, urinary retention. Endocrinologic: Diabetes Mellitus. Skeletomuscular: No muscular atrophy. Neurological: see HP. Psychiatric: Denies drug use/abuse. Otherwise, not [id number] review of systems. PHYSICAL EXAMINATION: General appearance is in subacute distress. HEENT: Normocephalic and nontraumatic. Left pupil dilated s/p surgery. Nose, ears, and throat are unremarkable. Neck is supple. No lymphadenopathy. No bruits are heard over the carotid artery. No crepitus. Cardiovascular: S1, S2, regular rate and rhythm. Pulmonary: Clear to auscultation bilaterally. Abdomen: Bowel sounds are positive. Abdomen is soft, nontender, and nondistended. Extremities: No rash, lesions, or edema. No restriction of range of motion NEUROLOGICAL EXAMINATION: Alert Partially oriented to time, but knew place and person. Right pupil 2 mm reactive to light. Left 4 mm not reactive to light stimulation. EOMI. CN: no focal findings. Muscle tone: within normal. Muscle strength: 5- DTR: 2 Plantar reflex: Neutral response bilaterally Gait: not examined in bed. Sensory exam: no abnormal findings. No cerebellar signs elicited. F-T-N test accurate. Current Medications Current Medications Current Medications Dextrose (Dextrose 50%-Water Syringe) 12.5 gm PRN Q15MIN PRN IV SEE COMMENTS; Start 06/07/19 at 17:00 Dextrose 250 ml PRN Q15MIN PRN IV SEE COMMENTS; Start 06/07/19 at 17:00; Status UNV Atorvastatin Calcium (Lipitor) 40 mg QHS PO ; Start 06/07/19 at 21:00 Diclofenac Sodium (Voltaren) 1 amy BID TP ; Start 06/07/19 at 21:00 Metformin HCl (Glucophage Xr) 500 mg DAILYWBKFT PO Last administered on 06/08/19 09:26; Start 06/08/19 at 08:00 Nitroglycerin (Nitrostat) 0.4 mg PRN Q5MIN PRN SL CHEST PAIN; Start 06/07/19 at 20:45 Ticagrelor (Brilinta) 90 mg BID PO Last administered on 06/08/19 09:25; Start 06/07/19 at 21:00 Acyclovir (Zovirax) 400 mg BID PO Last administered on 06/08/19 09:26; Start 06/07/19 at 21:00 Ascorbic Acid (Vitamin C) 500 mg DAILY PO Last administered on 06/08/19 09:26; Start 06/08/19 at 09:00 Brimonidine Tartrate (Alphagan) 1 drop BID OU ; Start 06/07/19 at 21:00 Vitamin D (Vitamin D3) 1,000 unit DAILY PO Last administered on 06/08/19 09:26; Start 06/08/19 at 09:00 Insulin Human Lispro (HumaLOG) 3 units TIDWMEALS SQ Last administered on 06/08/19 18:00; Start 06/08/19 at 08:00 Insulin Glargine (Lantus Syringe) 9 unit QHS SQ Last administered on 06/07/19 21:29; Start 06/07/19 at 21:00 Multivitamins (Thera M Plus) 1 tab DAILY PO Last administered on 06/08/19 09:26; Start 06/08/19 at 09:00 Non-Formulary Medication (Prednisolone Acetate ) 5 ml DAILY OP ; Start 06/08/19 at 09:00; Status UNV Timolol Maleate (Timoptic 0.5% [facility]) 1 drop BID OU ; Start 06/07/19 at 21:00 Aspirin (Children'S Aspirin) 81 mg DAILYWBKFT PO Last administered on 06/08/19at 17:52; Start 06/08/19 at 17:00 Active Scripts Active Nitrostat (Nitroglycerin) 0.4 Mg Tab.subl 0.4 Mg SL PRN Q5MIN PRN Atorvastatin Calcium 40 Mg Tablet 40 Mg PO QHS Brilinta (Ticagrelor) 90 Mg Tablet 90 Mg PO BID Reported Prednisolone Acetate 5 Ml Drops.susp 5 Ml OP DAILY Voltaren (Diclofenac Sodium) 100 Gm Gel..gram. 1 Gm TP BID Multi Vitamin Daily (Multivitamin) 1 Each Tablet 1 Each PO DAILY Vitamin C (Ascorbate Calcium) 500 Mg Tablet 500 Mg PO DAILY Vitamin D (Cholecalciferol (Vitamin D3)) 1,000 Unit Capsule 1 Cap PO DAILY Acyclovir 400 Mg Tablet 400 Mg PO BID Combigan Eye Drops (Brimonidine Tartrate/Timolol) 5 Ml Drops 5 Ml OP BID Basaglar Kwikpen U-100 (Insulin Glargine,Hum.rec.anlog) 100 Unit/1 Ml Insuln.pen 9 Unit SQ HS Novolog (Insulin Aspart) 100 Unit/1 Ml Vial 3 Unit SQ TIDWMEALS Metformin Hcl Er (Metformin Hcl) 500 Mg Tab.er.24h 500 Mg PO DAILYWBKFT Allergies Allergies: Allergies Coded Allergies Type Severity Reaction Last Updated Verified No Known Drug Allergies 07/24/17 No ROS Review of System The patient denies any associated fevers, chills, headache, ear pain, rhinorrhea, sore throat, stiff neck, productive cough, chest pain, shortness of breath, back or flank pain, abdominal pain, nausea, vomiting, diarrhea, constipation, dysuria, rash, numbness, weakness, tingling, incontinence, difficulty ambulating, or diaphoresis. Physical Exam Physical Exam General: Well developed, well nourished, no acute distress, well appearing HEENT: Pupils equally round and reactive to light, EOMI, no discharge, normal conjunctiva Neck: Supple, no nuchal rigidity, no JVD, trachea midline, no tenderness Cardiac: RRR, no murmurs, no gallops, no rubs Chest/Lungs: CTAB, no wheeze, no rhonchi, no crackles Abdomen: soft, non-distended, no guarding, no peritoneal signs, non-tender Back: No tenderness Extremities: no edema, pulses intact, non-tender,capillary refill <3 sec bilateral upper and lower extremities, Neuro: Alert and oriented x 4, no focal deficits, normal speech Vitals Vitals: Vital Signs Date Time Temp Pulse Resp B/P (MAP) Pulse Ox O2 Delivery O2 Flow Rate FiO2 11/6/19 15:15 97.7 78 18 151/71 (97) 95 Room Air 97.7 Labs Labs Laboratory Tests Test 06/07/19 16:58 06/07/19 21:17 06/08/19 03:20 06/08/19 08:09 Glucose (Fingerstick) 133 mg/dL (70-99) 132 mg/dL (70-99) 146 mg/dL (70-99) White Blood Count 9.6 x10^3/uL (4.0-11.0) Red Blood Count 4.14 x10^6/uL (4.30-5.70) Hemoglobin 13.3 g/dL (13.0-17.5) Hematocrit 38.0 % (39.0-53.0) Mean Corpuscular Volume 92 fL (79-100) Mean Corpuscular Hemoglobin 32 pg (25-35) Mean Corpuscular Hemoglobin Concent 35 g/dL (31-37) Red Cell Distribution Width 14.6 % (11.5-14.5) Platelet Count 194 x10^3/uL (140-400) Neutrophils (%) (Auto) 83 % (31-73) Lymphocytes (%) (Auto) 11 % (24-48) Monocytes (%) (Auto) 5 % (0-9) Eosinophils (%) (Auto) 1 % (0-3) Basophils (%) (Auto) 0 % (0-3) Neutrophils # (Auto) 8.0 x10^3/uL (1.8-7.7) Lymphocytes # (Auto) 1.0 x10^3/uL (1.0-4.8) Monocytes # (Auto) 0.5 x10^3/uL (0.0-1.1) Eosinophils # (Auto) 0.0 x10^3/uL (0.0-0.7) Basophils # (Auto) 0.0 x10^3/uL (0.0-0.2) Sodium Level 142 mmol/L (136-145) Potassium Level 4.1 mmol/L (3.5-5.1) Chloride Level 108 mmol/L (98-107) Carbon Dioxide Level 24 mmol/L (21-32) Anion Gap 10 (6-14) Blood Urea Nitrogen 18 mg/dL (8-26) Creatinine 1.1 mg/dL (0.7-1.3) Estimated GFR (Cockcroft-Gault) 66.0 BUN/Creatinine Ratio 16 (6-20) Glucose Level 176 mg/dL (70-99) Calcium Level 8.4 mg/dL (8.5-10.1) Total Bilirubin 0.5 mg/dL (0.2-1.0) Aspartate Amino Transf (AST/SGOT) 15 U/L (15-37) Alanine Aminotransferase (ALT/SGPT) 19 U/L (16-63) Alkaline Phosphatase 75 U/L (46-116) Total Protein 6.1 g/dL (6.4-8.2) Albumin 3.3 g/dL (3.4-5.0) Albumin/Globulin Ratio 1.2 (1.0-1.7) Triglycerides Level 74 mg/dL (0-150) Cholesterol Level 118 mg/dL (0-200) LDL Cholesterol, Calculated 64 mg/dL (0-100) VLDL Cholesterol, Calculated 15 mg/dL (0-40) Non-HDL Cholesterol Calculated 79 mg/dL (0-129) HDL Cholesterol 39 mg/dL (40-60) Cholesterol/HDL Ratio 3.0 Vitamin B12 Level 410 pg/mL (247-911) Thyroid Stimulating Hormone (TSH) 1.386 uIU/mL (0.358-3.74) Test 06/08/19 11:33 06/08/19 16:54 Glucose (Fingerstick) 249 mg/dL (70-99) 147 mg/dL (70-99) Laboratory Tests Test 06/07/19 21:17 06/08/19 03:20 06/08/19 08:09 06/08/19 11:33 Glucose (Fingerstick) 132 mg/dL (70-99) 146 mg/dL (70-99) 249 mg/dL (70-99) White Blood Count 9.6 x10^3/uL (4.0-11.0) Red Blood Count 4.14 x10^6/uL (4.30-5.70) Hemoglobin 13.3 g/dL (13.0-17.5) Hematocrit 38.0 % (39.0-53.0) Mean Corpuscular Volume 92 fL (79-100) Mean Corpuscular Hemoglobin 32 pg (25-35) Mean Corpuscular Hemoglobin Concent 35 g/dL (31-37) Red Cell Distribution Width 14.6 % (11.5-14.5) Platelet Count 194 x10^3/uL (140-400) Neutrophils (%) (Auto) 83 % (31-73) Lymphocytes (%) (Auto) 11 % (24-48) Monocytes (%) (Auto) 5 % (0-9) Eosinophils (%) (Auto) 1 % (0-3) Basophils (%) (Auto) 0 % (0-3) Neutrophils # (Auto) 8.0 x10^3/uL (1.8-7.7) Lymphocytes # (Auto) 1.0 x10^3/uL (1.0-4.8) Monocytes # (Auto) 0.5 x10^3/uL (0.0-1.1) Eosinophils # (Auto) 0.0 x10^3/uL (0.0-0.7) Basophils # (Auto) 0.0 x10^3/uL (0.0-0.2) Sodium Level 142 mmol/L (136-145) Potassium Level 4.1 mmol/L (3.5-5.1) Chloride Level 108 mmol/L (98-107) Carbon Dioxide Level 24 mmol/L (21-32) Anion Gap 10 (6-14) Blood Urea Nitrogen 18 mg/dL (8-26) Creatinine 1.1 mg/dL (0.7-1.3) Estimated GFR (Cockcroft-Gault) 66.0 BUN/Creatinine Ratio 16 (6-20) Glucose Level 176 mg/dL (70-99) Calcium Level 8.4 mg/dL (8.5-10.1) Total Bilirubin 0.5 mg/dL (0.2-1.0) Aspartate Amino Transf (AST/SGOT) 15 U/L (15-37) Alanine Aminotransferase (ALT/SGPT) 19 U/L (16-63) Alkaline Phosphatase 75 U/L (46-116) Total Protein 6.1 g/dL (6.4-8.2) Albumin 3.3 g/dL (3.4-5.0) Albumin/Globulin Ratio 1.2 (1.0-1.7) Triglycerides Level 74 mg/dL (0-150) Cholesterol Level 118 mg/dL (0-200) LDL Cholesterol, Calculated 64 mg/dL (0-100) VLDL Cholesterol, Calculated 15 mg/dL (0-40) Non-HDL Cholesterol Calculated 79 mg/dL (0-129) HDL Cholesterol 39 mg/dL (40-60) Cholesterol/HDL Ratio 3.0 Vitamin B12 Level 410 pg/mL (247-911) Thyroid Stimulating Hormone (TSH) 1.386 uIU/mL (0.358-3.74) Test 06/08/19 16:54 Glucose (Fingerstick) 147 mg/dL (70-99) JERRELL VELASQUEZ MD Jun 08, 2019 19:18
[2019-06-08 19:53] VITALS: BP 149/76
--- NOTE | 2019-06-08 20:01 | NUR ---
At bedside report Gail Maciel and I did NIH stroke scale. Pt scored a 4.
[2019-06-08] MEDS: ATORVASTATIN CALCIUM 40 MG TABLET. PO SCH (21:48)
[2019-06-08] MEDS: INSULIN GLARGINE SYRINGE. SQ SCH (21:54)
[2019-06-08 23:00] VITALS: BP 143/71
[2019-06-09 03:30] VITALS: BP 142/70
[2019-06-09 06:06] LABS: C-REACTIVE PROTEIN 1.7 mg/L (0-3.3); CALCIUM 8.6 mg/dL (8.5-10.1); CREATININE 1.1 mg/dL (0.7-1.3); POTASSIUM 3.7 mmol/L (3.5-5.1)
[2019-06-09 06:09] LABS: CHOLESTEROL/HDL RATIO 3.4
[2019-06-09 07:15] VITALS: BP 145/76
[2019-06-09] MEDS: ASPIRIN CHEWABLE 81 MG TABLET. PO SCH (08:26)
[2019-06-09] MEDS: ASCORBIC ACID 500 MG TABLET PO SCH (08:26)
[2019-06-09] MEDS: ACYCLOVIR 200 MG CAPSULE. PO SCH ×2 (08:27→21:52)
[2019-06-09] MEDS: metFORMIN XR 500 MG TAB.ER.24H PO SCH (08:27)
[2019-06-09] MEDS: TICAGRELOR 90 MG TABLET. PO SCH ×2 (08:27→21:52)
[2019-06-09] MEDS: BRIMONIDINE 0.2% OPHTH SOLUTION 5ML BOTTLE. OU SCH ×2 (08:27→21:59)
[2019-06-09] MEDS: TIMOLOL 0.5% OPHTH SOLUTION 5ML BOTTLE. OU SCH (08:27)
[2019-06-09] MEDS: MULTIVITAMIN with MINERAL TABLET. PO SCH (08:27)
[2019-06-09] MEDS: CHOLECALCIFEROL (VITAMIN D3) 1,000 UNIT TABLET PO SCH (08:27)
[2019-06-09] MEDS: DICLOFENAC SODIUM 1% TOPICAL GEL 100GM TUBE. TP SCH ×4 (08:30→22:02)
[2019-06-09] MEDS: INSULIN LISPRO 300 UNITS/3 ML VIAL. SQ SCH ×3 (08:37→17:51)
--- NOTE | 2019-06-09 08:58 | RAD ---
EXAM: CT HEAD WITHOUT CONTRAST. HISTORY: Cerebrovascular accident. TECHNIQUE: Computed tomography of the head was performed without intravenous contrast. One or more of the following individualized dose reduction techniques were utilized for this examination: 1. Automated exposure control. 2. Adjustment of the mA and/or kV according to patient size. 3. Use of iterative reconstruction technique. COMPARISON: 06/08/2019. FINDINGS: There is no intracranial hemorrhage. A focus of hypoattenuation within the left cerebellar hemisphere corresponds with the known subacute infarct. The small left pontine infarction are not well visualized by CT. There is mild chronic microangiopathic white matter change elsewhere. Prominence of the lateral ventricles and hemispheric sulci indicates mild atrophy. There is mild mucosal thickening bilaterally in the maxillary sinuses. There are changes of left cataract surgery. Mastoidectomy changes are noted bilaterally. The calvarium reveals no suspicious lesions. IMPRESSION: 1. Subacute left cerebellar and pontine infarcts as better seen on prior MRI. 2. Mild atrophy and chronic microangiopathic white matter change. Electronically signed by: Reba Kauffman MD (06/09/2019 8:55 AM) [facility]
--- NOTE | 2019-06-09 09:17 | NUR ---
SW following pt. SW spoke with pt about rehab options. Pt requested SWer to call his about this. SW left a VM to Mariya, phone: [phone] requesting a call back. Discussed with Physician. TONI will continue to follow.
--- NOTE | 2019-06-09 09:25 | PN ---
DATE: 06/09/2019 SUBJECTIVE: The patient is resting, slightly propped up in bed, in no apparent respiratory distress. On questioning him, he denied any complaint. He claimed that he was able to walk with a walker for a short distance. He did have an MRI of the brain, which showed that the patient has areas of acute ischemia infarction seen involving the left aspect of the bones, left brachium pontis and anterior left cerebellar hemisphere. There is surrounding edema without significant mass effect. He has also mild mucosal thickening, is seen scattered throughout the paranasal sinuses. Normal flow voids are seen with the major vascular structures surrounding the brain parenchyma. He had had bilateral carotid Doppler ultrasound, which showed no Doppler evidence of hemodynamically significant stenosis within the carotid or internal carotid arteries. He was seen by Dr. Ramey. When I saw him this morning, he was resting slightly propped up in bed, in no apparent respiratory distress. On questioning, he denied any complaint. PHYSICAL EXAMINATION: GENERAL: When I examined him, he looked somewhat pale. No jaundice, cyanosis, or thyromegaly. No jugular venous distention. No lower limb edema. VITAL SIGNS: His heart rate was 77, blood pressure was 145/76, temperature was 97.8, respiratory rate was 16, and oxygen saturation was 97% on room air. HEAD, EYES, EARS, NOSE, AND THROAT: Showed normocephalic, atraumatic. NECK: Supple. HEART: Showed normal first and second heart sounds. No gallop, rub, or murmur. CHEST: Clear to auscultation. No crepitation or rhonchi. ABDOMEN: Distended, soft, nontender. NEUROLOGIC: He was awake, alert, responding appropriately. He has left-sided lower motor neuron facial palsy. He is moving his upper extremities without difficulty. Apparently, he is unable to walk. His intake and output were incompletely recorded. His lab work as of yesterday showed white cell count of 9600, hemoglobin 13, hematocrit 38, MCV 92, and platelet count of 194,000. His chemistry showed serum sodium of 144, potassium 3.7, chloride 107, bicarbonate 27, anion gap of 10, BUN 21, creatinine 1.1, estimated GFR was 66 mL per minute, his glucose 152, calcium was 8.6, magnesium was 2. C-reactive protein was 1.7 mg/dL. Serum triglycerides was 78, total cholesterol of 21, LDL was 69, VLDL was 16, and HDL cholesterol was 36, the ratio was 3.4. His vitamin B12 was 410 pg/mL and TSH was normal at 1.386. ASSESSMENT: 1. Acute/subacute left brachium pontis and left cerebellar infarct. 2. Persistent dizziness since the morning of 06/07/2019. 3. Type 2 diabetes mellitus. 4. Hypertension. 5. Hyperlipidemia. 6. Coronary artery disease, status post percutaneous coronary intervention with stent deployment. The patient also has left-sided shingles. He is status post left corneal implant. PLAN: To continue with physical and occupational therapy. Cardiology was consulted. I will order an echocardiogram with bubble study. TIGRE SONG MD DR: MANISHA/tameka JOB#: [id number] / [id number]
[2019-06-09 11:06] VITALS: BP 160/88
--- NOTE | 2019-06-09 11:25 | NUR ---
TONI following pt. TONI spoke with pt's , Mariya, in pt's room about rehab VS SNU, PT/OT recommendation and insurance coverage. Pt's stated she is not able to drive to the inpatient rehab locations and would like pt to go to [facility]. TONI phoned and faxed referral to [facility]: [phone], fax; [phone]. Pt acceptance and admission pending. Discussed with RN. TONI will continue to follow.
--- NOTE | 2019-06-09 12:33 | PDOC2 ---
ILNDA VELARDE PLANER OPERATOR 06/09/19 1233: CARDIAC CONSULT DATE OF CONSULT Date of Consult DATE: 06/09/19 TIME: 12:11 REASON FOR CONSULT Reason for Consult: Stroke on ticagrelor. Switch to Plavix? REFERRING PHYSICIAN Referring Physician: Dr. Ramey SOURCE Source: Chart review, Patient HISTORY OF PRESENT ILLNESS HISTORY OF PRESENT ILLNESS This is a 73 yo male who presented to [facility] secondary to who was br ought to the Emergency Room of [facility] with a complaint of dizziness and vomiting. Was unable to walk. EMS was called. CT head negative for acute stroke. Patient was transferred to [facility] for further evaluation and treatment. MRI here confirmed acute stroke. Has a history of CAD s/p PCI/stent 03/2019. Has been on ASA and Brilinta. PAST MEDICAL HISTORY Cardiovascular: CAD, HTN, Hyperlipidemia Endocrine: Diabetes PAST SURGICAL HISTORY Past Surgical History: Other (PCI/KUSH to RCA) FAMILY HISTORY Family History: Hypertension SOCIAL HISTORY Smoke: No ALCOHOL: none Drugs: None Lives: with Family CURRENT MEDICATIONS CURRENT MEDICATIONS Current Medications Medications (Trade) Dose Ordered Sig/Fran Route PRN Reason Start Time Stop Time Status Last Admin Dose Admin Aspirin (Children'S Aspirin) 81 mg DAILYWBKFT PO 06/08/19 17:00 06/09/19 08:26 ALLERGIES ALLERGIES: Coded Allergies: No Known Drug Allergies (Unverified , 07/24/17) ROS Review of System 14 point ROS conducted with pertinent positives noted above in HPI. PHYSICAL EXAM General: Alert, Oriented X3, Cooperative, No acute distress HEENT: Other (left facial droop) Heart: Regular rate, Normal S1, Normal S2 Abdomen: Soft Extremities: No cyanosis, No edema, Normal pulses Skin: No breakdown, No significant lesion Neuro: Normal speech, Sensation intact Psych/Mental Status: Mental status NL, Mood NL MUSCULOSKELETAL: Osteoarthritic changes both hands VITALS/I&O VITALS/I&O: Vital Signs Date Time Temp Pulse Resp B/P (MAP) Pulse Ox O2 Delivery O2 Flow Rate FiO2 06/09/19 11:06 97.5 75 18 160/88 (112) 96 Room Air 97.5 I & O 06/08/19 06/08/19 06/09/19 15:00 23:00 07:00 Intake Total 580 ml 300 ml Output Total 280 ml Balance 300 ml 300 ml LABS Lab: Laboratory Tests Test 06/08/19 16:54 06/08/19 20:38 06/09/19 04:01 06/09/19 07:16 Glucose (Fingerstick) 147 mg/dL (70-99) H 157 mg/dL (70-99) H 152 mg/dL (70-99) H Erythrocyte Sedimentation Rate 5 (0-15) Sodium Level 144 mmol/L (136-145) Potassium Level 3.7 mmol/L (3.5-5.1) Chloride Level 107 mmol/L (98-107) Carbon Dioxide Level 27 mmol/L (21-32) Anion Gap 10 (6-14) Blood Urea Nitrogen 21 mg/dL (8-26) Creatinine 1.1 mg/dL (0.7-1.3) Estimated GFR (Cockcroft-Gault) 66.0 Glucose Level 152 mg/dL (70-99) H Calcium Level 8.6 mg/dL (8.5-10.1) Magnesium Level 2.0 mg/dL (1.8-2.4) C-Reactive Protein, Quantitative 1.7 mg/L (0-3.3) HZ-Fju-P-Type Natriuretic Peptide 1082 pg/mL (0-124) H Triglycerides Level 78 mg/dL (0-150) Cholesterol Level 121 mg/dL (0-200) LDL Cholesterol, Calculated 69 mg/dL (0-100) VLDL Cholesterol, Calculated 16 mg/dL (0-40) Non-HDL Cholesterol Calculated 85 mg/dL (0-129) HDL Cholesterol 36 mg/dL (40-60) L Cholesterol/HDL Ratio 3.4 Test 06/09/19 11:27 Glucose (Fingerstick) 143 mg/dL (70-99) H Laboratory Tests 06/09/19 04:01 ECHOCARDIOGRAM ECHOCARDIOGRAM <Conclusion> The left ventricular systolic function is normal. The Ejection Fraction is 55-60%. There is normal LV segmental wall motion. Transmitral Doppler flow pattern is Grade I-abnormal relaxation pattern. Trace to mild mitral regurgitation. Trace tricuspid regurgitation. The PA pressure was estimated at 32 mmHg. There is no evidence of significant pericardial effusion. DATE: 12/03/18 0940 <Conclusion> Linited study to evaluate LV function. The left ventricle is normal size. The left ventricular systolic function is overall normal. The Ejection Fraction is 50-55%. There is minimal inferior wall hypokinesis. There is borderline concentric left ventricular hypertrophy. There is no evidence of significant pericardial effusion. DATE: 04/01/19 1134 STRESS TEST STRESS TEST Conclusion 1. Regadenoson cardioisotope stress test did not show any evidence of ischemia or infarct. 2. Normal left ventricular systolic function with ejection fraction calculated at 69%. 3. Low risk for cardiac events. DATE: 07/24/17 1340 HEART CATH HEART CATH CORONARY ANGIOGRAPHY: LM is a large caliber vessel with normal angiographic appearance. LAD is a large caliber vessel with a mid 30% stenosis. D1 is a moderate caliber vessel with normal angiographic apeparance. LCx is a moderate caliber non-dominant vessel with normal angiographic appearance. OM1 is a moderate caliber vessel with normal angiographic appearance. RCA is a large caliber dominant calcified vessel with a mid to distal subtotal occlusion with NEYDA 1 flow. RPDA is a moderate caliber vessel with normal angiographic appearance. RPL is a moderate caliber vessel with a mid to distal occlusion from thrombus. Conclusion 1. Inferior STEMI 2. Acute on chronic diastolic HF. LVEDP 25 mm Hg 3. One vessel CAD. 4. Successful PCI of the RCA with implantation of Xience Shena 3.12/23 KUSH. Recommendations ASA 81mg daily Ticagrelor 90mg bid High dose statin therapy and cardiac rehab. DATE: 03/31/19 1950 ASSESSMENT/PLAN ASSESSMENT/PLAN 1. Dizziness, persistent 2. Acute stroke as confirmed by MRI. ? cardioembolic. No evidence of ASD/PFO as noted on 2-D echo. Bubble study non-diagnostic due to poor image quality. Telemetry note with brief burst of probable aberrant AFIB. 3. CAD; STEMI 03/2019. S/p PCI/KUSH to the RCA. Has been on DAPT with ASA and Brilinta 4. Chronic diastolic CHF; clinically compensated 5. Hypertension; mildly elevated 6. Hyperlipidemia; LDL 69 7. Diabetes, II Recommendation Secondary prevention measures Continue DAPT with ASA, Brilinta. No benefits of Plavix versus Brilinta Add low-dose BB therapy Will need to r/o arrhythmia as etiology. Will plan for long-term rhythm monitoring with implantable loop recorder. R/b/a discussed with patient and and they are agreeable with proceed SHILPAO eugenie PEREZ. AVINASH PARRISH MD 11/7/19 1914: CARDIAC CONSULT ASSESSMENT/PLAN ASSESSMENT/PLAN Patient seen and examined. Agree with MERCHANDISER RETAIL REPRESENTATIVE's assessment and plan. Agree with loop recorder implantation to rule out atrial fibrillation as an etiology for patient's CVA CAD stable 2D echo results as noted above Continue current meds including DAPT Thank you for your consultation LINDA VELARDE APRN Jun 09, 2019 12:33 AVINASH PARRISH MD Jun 09, 2019 19:14
--- NOTE | 2019-06-09 12:34 | CARD ---
MR#: [id number] Date of Study: 06/09/2019 Ordering Physician: TIGRE SONG, Referring Physician: TIGRE SONG, Tech: Rhonda Wilkerson [facility] APPROVED REPORT EXAM: LIMITED Two-dimensional echocardiogram with bubble study. Other Information Quality : AverageHR: 65bpm Rhythm : NSRTechnically limited study due to body habitus. INDICATION CVA/TIA 2D DIMENSIONS RVDd2.8 (2.9-3.5cm)Left Atrium(2D)3.0 (1.6-4.0cm) IVSd1.0 (0.7-1.1cm)Aortic Root(2D)3.4 (2.0-3.7cm) LVDd4.8 (3.9-5.9cm)PWd1.1 (0.7-1.1cm) LVDs3.3 (2.5-4.0cm)FS (%) 29.9 % SV60.6 mlLVEF(%)55.0 (>50%) LEFT VENTRICLE The left ventricle is normal size. There is borderline to mild concentric left ventricular hypertroph y. The left ventricular systolic function is normal and the ejection fraction is within normal range. The Ejection Fraction is 50-55%. Septal motion suggestive of conduction defect and prior CABG. Other vergara, mild global hypokinesis. RIGHT VENTRICLE The right ventricle is normal size. There is normal right ventricular wall thickness. The right ventr icular systolic function is normal. ATRIA The left atrium size is normal. The right atrium size is normal. The interatrial septum is intact wit h no evidence for an atrial septal defect or patent foramen ovale as noted on 2-D or Doppler imaging. Non-diagnostic bubble study due to poor image quality AORTIC VALVE The aortic valve is trileaflet. The aortic valve is mildly calcified. MITRAL VALVE The mitral valve is thickened but opens well. There is no evidence of mitral valve prolapse. TRICUSPID VALVE The tricuspid valve is normal in structure and function. Doppler and Color Flow revealed no tricuspid valve regurgitation noted. There is no tricuspid valve prolapse or vegetation. There is no tricuspid valve stenosis. PULMONIC VALVE The pulmonic valve is not well visualized. GREAT VESSELS The aortic root is normal in size. The ascending aorta is normal in size. The IVC was not visualized. PERICARDIAL EFFUSION There is no evidence of significant pericardial effusion. Critical Notification Critical Value: No <Conclusion> The left ventricular systolic function is normal and the ejection fraction is within normal range. Th e Ejection Fraction is 50-55%. Septal motion suggestive of conduction defect and prior CABG. Otherwise, mild global hypokinesis. The interatrial septum is intact with no evidence for an atrial septal defect or patent foramen ovale as noted on 2-D or Doppler imaging. Non-diagnostic bubble study due to poor image quality Signed by : Marcell Mclaughlin, Electronically Approved : 06/09/2019 12:34:18
[2019-06-09 14:59] VITALS: BP 148/78
--- NOTE | 2019-06-09 15:04 | PDOC ---
PROGRESS NOTES Assessment Assessment Acute/subacute in left brachium pontis, and left cerebellar, multiple. Persistent dizziness since am of 06/07/19. Metabolic encephalopathy. DM. Hyperglycemia. HTN. HLD. CAD. Recent STEMI in 03/21 s/p stent placement. Left eye s/p surgery with dilated pupil since. Cognitive impairment. Shingles, recently. RECOMMENDATIONS/PLAN: He has been treated with Ticagrelol. Continue Lipitor HS. ASA 81 mg daily. Consulted Cardiology and suggested continue Ticagrelor and ASA. Treat medical diseases. OT/PT. Rehab. Please consult Cardiology if we can change to Plavix after a few days. Discussed with his and son at bedside in the morning on 06/08/19. Discussed with his and sister in a great detail again and showed them MRI findings in pm on 06/08/19. Discussed with his again at bedside on 06/09/19. HISTORY OF THE PRESENT ILLNESS: This is a 73-year-old male patient with recent STEMI with cardiac stent placement in 03/21. He developed symptoms of severe dizziness associated with nausea and vomiting on 06/07/19. He was noted to have perspiration during his episodes of dizziness. His symptoms persistent and he is still not able to stand up or walk on 06/08/19. So Neurology was requested for consultation. 06/09/19: MS improved but still has dizziness. PAST MEDICAL HISTORY: Diabetes mellitus, hypertension, hyperlipidemia, coronary artery disease, status post ND, stent deployment on 03/31/2019. He has also chronic constipation and benign prostatic hypertrophy. 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 He is also known to have glaucoma. PAST SURGICAL HISTORY: Left eye corneal transplant. He had ear surgery, hernia repair, and tonsillectomy. He had also PCI with stent deployment in March of this year. ALLERGIES: No known drug allergies. FAMILY HISTORY: His sister at age of 52 because of Parkinson disease, complication of diabetes, has 5 brothers, 1 of them has coronary artery disease and open heart surgery and others have peripheral vascular disease. His father at the age of 66 because of diabetes mellitus and mother at age 66 because of complication of surgery. SOCIAL HISTORY: He is , has no children. He quit smoking in 1991. He used to smoke 4 packs a day and smoked since he was 20 years old. He does not drink alcohol or use any recreational drugs. 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 MEDICATIONS: Refer to MAR REVIEW OF SYSTEMS: Constitutional: No malnutrition, weight loss, cachexia. Head: No traumatic brain or head injury. Skin: No edema, or rash. Ear: No infection. Eyes: No vision loss or color blindness. Nose: No bleeding or purulent discharges. Hearing: No hearing decrease. Neck: No injury. Cardiac: ND, CAD, HTN, HLD. Pulmonary: No COPD. GI: No GI ulcer, GI bleeding. Urinary/genital: No dysuria, incontinence, urinary retention. Endocrinologic: Diabetes Mellitus. Skeletomuscular: No muscular atrophy. Neurological: see HP. Psychiatric: Denies drug use/abuse. Otherwise, not [id number] review of systems. PHYSICAL EXAMINATION: General appearance is in subacute distress. HEENT: Normocephalic and nontraumatic. Left pupil dilated s/p surgery. Nose, ears, and throat are unremarkable. Neck is supple. No lymphadenopathy. No bruits are heard over the carotid artery. No crepitus. Cardiovascular: S1, S2, regular rate and rhythm. Pulmonary: Clear to auscultation bilaterally. Abdomen: Bowel sounds are positive. Abdomen is soft, nontender, and nondistended. Extremities: No rash, lesions, or edema. No restriction of range of motion NEUROLOGICAL EXAMINATION: Alert Partially oriented to time, but knew place and person. Right pupil 2 mm reactive to light. Left 4 mm not reactive to light stimulation. EOMI. CN: Left VII palsy (peripheral type). Muscle tone: within normal. Muscle strength: 5- DTR: 2 Plantar reflex: Neutral response bilaterally Gait: Able to walk with a walker. Sensory exam: no abnormal findings. No cerebellar signs elicited. F-T-N test accurate. Objective Objective Vital Signs Date Time Temp Pulse Resp B/P (MAP) Pulse Ox O2 Delivery O2 Flow Rate FiO2 06/09/19 11:06 97.5 75 18 160/88 (112) 96 Room Air 97.5 Intake and Output 06/09/19 07:00 Intake Total 880 ml Output Total 280 ml Balance 600 ml Intake Oral 880 ml Output Urine Total 280 ml # Voids 6 # Bowel Movements 1 Vitals Signs Vitals VS - Last 72 Hours, by Label Date Time Temp Pulse Resp B/P (MAP) Pulse Ox O2 Delivery O2 Flow Rate FiO2 06/09/19 11:06 97.5 75 18 160/88 (112) 96 Room Air 97.5 06/09/19 07:15 97.8 77 16 145/76 (99) 97 Room Air 97.8 06/09/19 03:30 97.9 82 16 142/70 (94) 94 Room Air 97.9 06/08/19 23:00 97.9 75 16 143/71 (95) 94 Room Air 97.9 06/08/19 19:53 98.7 93 16 149/76 (100) 93 Room Air 98.7 06/08/19 15:15 97.7 78 18 151/71 (97) 95 Room Air 97.7 06/08/19 11:02 98.3 97 20 151/74 (99) 94 Room Air 98.3 06/08/19 08:00 Room Air 06/08/19 07:15 98.4 82 18 128/63 (84) 98 Room Air 98.4 Laboratory Laboratory Laboratory Tests Test 06/08/19 16:54 06/08/19 20:38 06/09/19 04:01 06/09/19 07:16 Glucose (Fingerstick) 147 mg/dL (70-99) 157 mg/dL (70-99) 152 mg/dL (70-99) Erythrocyte Sedimentation Rate 5 (0-15) Sodium Level 144 mmol/L (136-145) Potassium Level 3.7 mmol/L (3.5-5.1) Chloride Level 107 mmol/L (98-107) Carbon Dioxide Level 27 mmol/L (21-32) Anion Gap 10 (6-14) Blood Urea Nitrogen 21 mg/dL (8-26) Creatinine 1.1 mg/dL (0.7-1.3) Estimated GFR (Cockcroft-Gault) 66.0 Glucose Level 152 mg/dL (70-99) Calcium Level 8.6 mg/dL (8.5-10.1) Magnesium Level 2.0 mg/dL (1.8-2.4) C-Reactive Protein, Quantitative 1.7 mg/L (0-3.3) GI-Wrd-G-Type Natriuretic Peptide 1082 pg/mL (0-124) Triglycerides Level 78 mg/dL (0-150) Cholesterol Level 121 mg/dL (0-200) LDL Cholesterol, Calculated 69 mg/dL (0-100) VLDL Cholesterol, Calculated 16 mg/dL (0-40) Non-HDL Cholesterol Calculated 85 mg/dL (0-129) HDL Cholesterol 36 mg/dL (40-60) Cholesterol/HDL Ratio 3.4 Test 06/09/19 11:27 Glucose (Fingerstick) 143 mg/dL (70-99) Medication Medications Current Medications Aspirin (Children'S Aspirin) 81 mg DAILYWBKFT PO Last administered on 06/09/19at 08:26; Start 06/08/19 at 17:00 Comment Review of Relevant I have reviewed the following items charity (where applicable) has been applied. JERRELL VELASQUEZ MD Jun 09, 2019 15:04
--- NOTE | 2019-06-09 16:05 | NUR ---
Spoke with [facility], still no acceptance decision. She states nursing team would like to review dc meds. SW discussed these were faxed with referral. TONI will continue to follow.
[2019-06-09 19:58] VITALS: BP 146/77
[2019-06-09] MEDS: ATORVASTATIN CALCIUM 40 MG TABLET. PO SCH (21:51)
[2019-06-09] MEDS: METOPROLOL TART IMMED RELEASE 25 MG TABLET. PO SCH (21:52)
[2019-06-09] MEDS: INSULIN GLARGINE SYRINGE. SQ SCH (21:58)
[2019-06-09 23:51] VITALS: BP 142/76
[2019-06-10 03:44] VITALS: BP 140/74
[2019-06-10 05:19] VITALS: BP 140/74
[2019-06-10 05:25] LABS: CALCIUM 8.6 mg/dL (8.5-10.1); CREATININE 1.1 mg/dL (0.7-1.3); MAGNESIUM 1.9 mg/dL (1.8-2.4); POTASSIUM 3.8 mmol/L (3.5-5.1)
[2019-06-10 07:00] VITALS: BP 156/88
[2019-06-10] MEDS: INSULIN LISPRO 300 UNITS/3 ML VIAL. SQ SCH ×2 (08:00→13:11)
--- NOTE | 2019-06-10 08:19 | PN ---
DATE: SUBJECTIVE: The patient is resting, slightly propped up in bed in his recliner, sleeping comfortably, in no apparent distress. On questioning him, he denied any complaint. The nursing staff did not voice any concern and stated that he has uneventful night. PHYSICAL EXAMINATION: GENERAL: When I examined him, he looked somewhat pale, no jaundice, cyanosis or thyromegaly. No jugular venous distention. No lower limb edema. VITAL SIGNS: His heart rate was 75, blood pressure 140/74, temperature was 97.6, respiratory rate was 18 and oxygen saturation was 96%. The rest of clinical exam is stable. LABORATORY DATA: His lab work this morning showed a serum sodium 143, potassium 3.8, chloride 108, bicarbonate 27, anion gap of 8, BUN 19, creatinine 1.1, estimated GFR was 66 mL per minute, his glucose 148, calcium was 8.6, magnesium was 1.9. His white cell count was 9600, hemoglobin 13, hematocrit 38, MCV 92, and platelet count of 194,000. He apparently has had an echocardiogram done, which showed that his left ventricular systolic function is normal with ejection fraction within normal range. Ejection fraction is 50-55%, septal motion suggestive of conduction defects and prior CABG, otherwise mild global hypokinesis. The interatrial septum is intact with no evidence of any atrial septal defect or patent foramen ovale as noted on 2D or Doppler imaging and diagnostic bubble study due to poor image quality. PLAN: The patient apparently was seen by the Cardiology team and the plan was to continue with aspirin and Brilinta with no advantage on Plavix. He is also kept n.p.o., scheduled for a loop recorder implantation to rule out atrial fibrillation as a cause of this patient's CVA. Plan is to continue with the physical and occupational therapy. Await the placement probably in a rehab center. TIGRE SONG MD DR: MANISHA/tameka JOB#: [id number] / [id number]
[2019-06-10] MEDS: DICLOFENAC SODIUM 1% TOPICAL GEL 100GM TUBE. TP SCH (09:00)
--- NOTE | 2019-06-10 09:54 | NUR ---
SW following pt. Pt has been accepted at [facility]. Pt and notified. Pt's reports pt is having some cardiac proceudre at 1100 today. Physician also notified. Will continue to follow.
[2019-06-10] MEDS: BRIMONIDINE 0.2% OPHTH SOLUTION 5ML BOTTLE. OU SCH (10:21)
[2019-06-10 11:00] VITALS: BP 150/76
[2019-06-10] MEDS ORDERED: LIDOCAINE 2%/EPI 1:100,000 20 ML VIAL. ONE (11:29)
--- NOTE | 2019-06-10 11:46 | SNU/HH DC ---
DISCHARGE ORDERS DISCHARGE INFORMATION: DISCHARGE DATE: Jun 10, 2019 FINAL DIAGNOSIS cerebellar stroke syndrome right sided hemiplegia HTN DM HLD CONDITION ON DISCHARGE: Stable CODE STATUS: Code Status: Full FPC: SNF STAY <30 DAYS: Yes POST DISCHARGE ORDERS: ACTIVITY ORDERS: Resume previous activity, Activity as tolerated WEIGHT BEARING STATUS: Full weight bearing DIET AFTER DISCHARGE: ADA TREATMENT/EQUIPMENT ORDERS: Physical Therapy For: Evalulation/Treatment Occupational Therapy For: Evaluation/Treatment DISCHARGE MEDICATIONS: Home Meds Active Scripts Nitroglycerin (NITROSTAT) 0.4 Mg Tab.subl, 0.4 MG SL PRN Q5MIN PRN for CHEST PAIN, #120 TAB Prov:NIKKI RAY MD 04/02/19 Atorvastatin Calcium (ATORVASTATIN CALCIUM) 40 Mg Tablet, 40 MG PO QHS for lipids, #90 TAB Prov:NIKKI RAY MD 04/02/19 Ticagrelor (BRILINTA) 90 Mg Tablet, 90 MG PO BID for stemi, #60 TAB Prov:NIKKI RAY MD 04/02/19 Reported Medications Prednisolone Acetate (PREDNISOLONE ACETATE) 5 Ml Drops.susp, 5 ML OP DAILY for left, DROP 04/01/19 Diclofenac Sodium (VOLTAREN) 100 Gm Gel..gram., 1 GM TP BID for joint pain, #100 GM 2 Refills 04/01/19 Multivitamin (MULTI VITAMIN DAILY) 1 Each Tablet, 1 EACH PO DAILY for vitamin, T AB 04/01/19 Ascorbate Calcium (VITAMIN C) 500 Mg Tablet, 500 MG PO DAILY for vitamin, TAB 04/01/19 Cholecalciferol (Vitamin D3) (VITAMIN D) 1,000 Unit Capsule, 1 CAP PO DAILY for vitamin, #30 CAP 3 Refills 04/01/19 Acyclovir (ACYCLOVIR) 400 Mg Tablet, 400 MG PO BID for cornea transplant, TAB 04/01/19 Brimonidine Tartrate/Timolol (COMBIGAN EYE DROPS) 5 Ml Drops, 5 ML OP BID for eye drops, DROP 04/01/19 Insulin Glargine,Hum.rec.anlog (Basaglar Kwikpen U-100) 100 Unit/1 Ml Insuln.pen, 9 UNIT SQ HS for blood sugar, EACH 04/01/19 Insulin Aspart (NOVOLOG) 100 Unit/1 Ml Vial, 3 UNIT SQ TIDWMEALS for blood sugar, VIAL 04/01/19 Metformin Hcl (METFORMIN HCL ER) 500 Mg Tab.er.24h, 500 MG PO DAILYWBKFT for ANTI-DIABETIC, TAB 0 Refills 04/01/19 TIGRE SONG MD Jun 10, 2019 11:46
[2019-06-10] MEDS ORDERED: LIDOCAINE 2%/EPI 1:100,000 20 ML VIAL. IJ ONE (12:00)
--- NOTE | 2019-06-10 12:47 | PDOC4 ---
PROCEDURE Procedure PROCEDURE Successful [employer] Confirm loop recorder implantation INDICATIONS Stroke of uncertain etiology COMPLICATIONS None PROCEDURAL DETAILS An informed consent was obtained from patient. His left chest and shoulder was prepped and draped in the usual fashion. 19 mL of 2% lidocaine was infiltrated into the skin and subcutaneous tissues for local anesthesia. An incision was made in the left fourth intercostal space one inch lateral to the midsternal line and using the introducer provided with acute, a [employer] Confirm loop recorder serial number [id number] was successfully placed in the subcutaneous tissue. The incision was closed in 2 layers. Hemostasis was secured. He tolerated the procedure well padded there were no immediate complications. CONCLUSIONS Successful loop recorder implantation to rule out atrial fibrillation as a cause of stroke AVINASH PARRISH MD Jun 10, 2019 12:47
[2019-06-10] MEDS: metFORMIN XR 500 MG TAB.ER.24H PO SCH (12:58)
[2019-06-10] MEDS: ASCORBIC ACID 500 MG TABLET PO SCH (12:58)
[2019-06-10] MEDS: ASPIRIN CHEWABLE 81 MG TABLET. PO SCH (12:59)
[2019-06-10] MEDS: CHOLECALCIFEROL (VITAMIN D3) 1,000 UNIT TABLET PO SCH (12:59)
[2019-06-10] MEDS: MULTIVITAMIN with MINERAL TABLET. PO SCH (12:59)
[2019-06-10] MEDS: TICAGRELOR 90 MG TABLET. PO SCH (12:59)
[2019-06-10] MEDS: ACYCLOVIR 200 MG CAPSULE. PO SCH (12:59)
[2019-06-10 13:00] VITALS: BP 150/76
[2019-06-10] MEDS: METOPROLOL TART IMMED RELEASE 25 MG TABLET. PO SCH (13:00)
--- NOTE | 2019-06-10 13:04 | DS ---
DATE OF DISCHARGE: 06/10/2019 HOSPITAL COURSE: The patient is a 73-year-old male patient who was admitted on 06/08 with a complaint of dizziness, lightheadedness, and vomiting. He claimed that he had popping around his ear. He began to get very dizzy. He describes as room spinning sensation. This was followed by vomiting. He was feeling normal prior to this episode. He recently had a corneal transplant a week ago, has had a heart attack earlier this year. He denied any shortness of breath, chest pain, or diaphoresis. According to his , the patient became unable to walk. She tried to help him and his brother came also to help him, therefore, they called the ambulance and was brought to the emergency room at [facility] where he was evaluated. When he arrived there, he was still dizzy and vomiting. He was extensively investigated, had a CT scan of the head showed that he has mild bilateral periventricular white matter hypodensities, likely chronic small vessel ischemic disease with no evidence of any acute intracranial hemorrhage. Given the presentation, the possibility of cerebellar stroke was entertained and therefore, the patient was transferred to [facility] for an MRI and to consult the Neurology team. He did have an MRI done, which basically confirmed our clinical suspicion, which showed that there is an area of acute ischemia infarction seen involving the left aspect of the bones and left brachium pontis and anterior left cerebellar hemisphere. There is surrounding edema without significant mass effect. Had had bilateral carotid Doppler ultrasound, which was negative and a repeat CT scan showed that there is subacute left cerebellar pontine infarct better seen on the MRI. Has mild atrophy and chronic microangiopathic white matter changes. He was seen in consultation by physical and occupational therapist and a decision was made to discharge him to [facility] to continue the process of rehabilitation. PHYSICAL EXAMINATION: GENERAL: When I examined him this morning, he looked well and was clearly in no apparent respiratory distress. No pallor, jaundice, cyanosis or thyromegaly. No jugular venous distention. No limb edema. VITAL SIGNS: His heart rate was 62, blood pressure 150/76, temperature was 97.4, respiratory rate was 16, and oxygen saturation was 96% on room air. HEAD, EYES, EARS, NOSE AND THROAT: Showed normocephalic, atraumatic. NECK: Supple. HEART: Showed normal first and second heart sounds. No gallop, rub or murmur. CHEST: Clear to auscultation. No crepitation or rhonchi. ABDOMEN: Distended, soft, nontender. NEUROLOGIC: He was awake, alert, responding appropriately. All cranial nerves are intact. He has a left-sided lower motor neuron facial palsy. He has right sided hemiparesis. His intake over the last 24 hours was 880, output was 1330. LABORATORY DATA: Showed his white cell count was 9600, hemoglobin 13, hematocrit 38, MCV 92, and platelet count of 194,000. Serum sodium 143, potassium 3.8, chloride 108, bicarbonate 27, anion gap of 8, BUN 19, creatinine 1.1, estimated GFR at 66 mL per minute, his glucose 148, calcium was 8.6, magnesium was 1.9. DISCHARGE MEDICATIONS: He was discharged to continue on metoprolol tartrate 25 mg twice a day, aspirin 81 mg once a day, multivitamin 1 tablet once a day, vitamin D 1000 international unit once a day, ascorbic acid 500 mg daily. He is on Humalog insulin 3 units before meals, metformin 500 mg once a day with breakfast, Lantus insulin 9 units at bedtime, brimonidine tartrate for Alphagan one drop to both eyes twice a day, acyclovir 400 mg twice a day, Brilinta 90 mg twice a day, diclofenac sodium for Voltaren gel one application twice a day, atorvastatin calcium 40 mg at bedtime, nitroglycerin 0.4 mg sublingually every 5 minutes x 3. He has loop recorder implanted to rule out atrial fibrillation as the etiology for the patient's CVA. His 2-dimensional echo showed that there is no ASD, no patent foramen ovale, although the bubble study was nondiagnostic due to poor image quality. Telemetry was noted with brief bursts of probable apparent atrial fibrillation. FINAL DISCHARGE DIAGNOSES: 1. Dizziness that continue to persist. 2. Acute cerebellar stroke and pontine stroke confirmed by MRI, cardioembolic. 3. Coronary artery disease, status post ST-segment elevation myocardial infarction on 03/2019. 4. Status post percutaneous coronary intervention with drug-eluting stent deployment to the right coronary artery. He has been on daily antiplatelet with aspirin and Brilinta. 5. Chronic diastolic congestive heart failure, hypertension, hyperlipidemia, type 2 diabetes. TIGRE SONG MD DR: Chan JOB#: [id number] / [id number]
--- NOTE | 2019-06-10 14:22 | NUR ---
TONI following pt. TONI phoned and faxed orders to [place]. Pt will transport via facility arranged w/c van at 1400. Pt's choice and rights forms signed by pt's and copies on chart. Pt and family aware of plans, agreeable. Discussed with RN and Packet on chart.
--- NOTE | 2019-06-10 14:57 | PDOC ---
PROGRESS NOTES Assessment Assessment Acute/subacute in left brachium pontis, and left cerebellar, multiple. Persistent dizziness since am of 06/07/19. Metabolic encephalopathy. DM. Hyperglycemia. HTN. HLD. CAD. Recent STEMI in 03/21 s/p stent placement. Left eye s/p surgery with dilated pupil since. Cognitive impairment. Shingles, recently. RECOMMENDATIONS/PLAN: He has been treated with Ticagrelol. Continue Lipitor HS. ASA 81 mg daily. Consulted Cardiology and suggested continue Ticagrelor and ASA. Treat medical diseases. OT/PT. Rehab. Discussed with his again at bedside on 06/10/19. HISTORY OF THE PRESENT ILLNESS: This is a 73-year-old male patient with recent STEMI with cardiac stent placement in 03/21. He developed symptoms of severe dizziness associated with nausea and vomiting on 06/07/19. He was noted to have perspiration during his episodes of dizziness. His symptoms persistent and he is still not able to stand up or walk on 06/08/19. So Neurology was requested for consultation. 06/10/19: MS improved but still has dizziness. PAST MEDICAL HISTORY: Diabetes mellitus, hypertension, hyperlipidemia, coronary artery disease, status post [place], stent deployment on 03/31/2019. He has also chronic constipation and benign prostatic hypertrophy. 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 He is also known to have glaucoma. PAST SURGICAL HISTORY: Left eye corneal transplant. He had ear surgery, hernia repair, and tonsillectomy. He had also PCI with stent deployment in March of this year. ALLERGIES: No known drug allergies. FAMILY HISTORY: His sister at age of 52 because of Parkinson disease, complication of diabetes, has 5 brothers, 1 of them has coronary artery disease and open heart surgery and others have peripheral vascular disease. His father at the age of 66 because of diabetes mellitus and mother at age 66 because of complication of surgery. SOCIAL HISTORY: He is , has no children. He quit smoking in 1991. He used to smoke 4 packs a day and smoked since he was 20 years old. He does not drink alcohol or use any recreational drugs. 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 MEDICATIONS: Refer to MAR REVIEW OF SYSTEMS: Constitutional: No malnutrition, weight loss, cachexia. Head: No traumatic brain or head injury. Skin: No edema, or rash. Ear: No infection. Eyes: No vision loss or color blindness. Nose: No bleeding or purulent discharges. Hearing: No hearing decrease. Neck: No injury. Cardiac: MN, CAD, HTN, HLD. Pulmonary: No COPD. GI: No GI ulcer, GI bleeding. Urinary/genital: No dysuria, incontinence, urinary retention. Endocrinologic: Diabetes Mellitus. Skeletomuscular: No muscular atrophy. Neurological: see HP. Psychiatric: Denies drug use/abuse. Otherwise, not [id number] review of systems. PHYSICAL EXAMINATION: General appearance is in subacute distress. HEENT: Normocephalic and nontraumatic. Left pupil dilated s/p surgery. Nose, ears, and throat are unremarkable. Neck is supple. No lymphadenopathy. No bruits are heard over the carotid artery. No crepitus. Cardiovascular: S1, S2, regular rate and rhythm. Pulmonary: Clear to auscultation bilaterally. Abdomen: Bowel sounds are positive. Abdomen is soft, nontender, and nondistended. Extremities: No rash, lesions, or edema. No restriction of range of motion NEUROLOGICAL EXAMINATION: Alert Partially oriented to time, but knew place and person. Right pupil 2 mm reactive to light. Left 4 mm not reactive to light stimulation. EOMI. CN: Left VII palsy (peripheral type). Muscle tone: within normal. Muscle strength: 5- DTR: 2 Plantar reflex: Neutral response bilaterally Gait: Able to walk with a walker. Sensory exam: no abnormal findings. No other cerebellar signs elicited. F-T-N test fine. Objective Objective Vital Signs Date Time Temp Pulse Resp B/P (MAP) Pulse Ox O2 Delivery O2 Flow Rate FiO2 06/10/19 13:00 62 150/76 06/10/19 11:00 97.4 16 96 Room Air 97.4 Intake and Output 06/10/19 07:00 Intake Total 940 ml Output Total 1330 ml Balance -390 ml Intake Oral 940 ml Output Urine Total 1330 ml # Voids 3 Vitals Signs Vitals VS - Last 72 Hours, by Label Date Time Temp Pulse Resp B/P (MAP) Pulse Ox O2 Delivery O2 Flow Rate FiO2 06/10/19 13:00 62 150/76 06/10/19 11:00 97.4 62 16 150/76 (100) 96 Room Air 97.4 06/10/19 08:00 Room Air 06/10/19 07:00 98.1 60 18 156/88 (110) 97 Room Air 98.1 06/10/19 03:44 97.6 75 18 140/74 (96) 96 Room Air 97.6 06/09/19 23:51 97.6 73 16 142/76 (98) 94 Room Air 97.6 06/09/19 21:52 74 146/77 06/09/19 20:00 Room Air 06/09/19 19:58 97.4 74 20 146/77 (100) 97 Room Air 97.4 06/09/19 14:59 97.2 72 20 148/78 (101) 96 Room Air 97.2 06/09/19 11:06 97.5 75 18 160/88 (112) 96 Room Air 97.5 06/09/19 08:00 Room Air 06/09/19 07:15 97.8 77 16 145/76 (99) 97 Room Air 97.8 Laboratory Laboratory Laboratory Tests Test 06/09/19 16:45 06/09/19 19:11 06/10/19 04:30 06/10/19 08:08 Glucose (Fingerstick) 151 mg/dL (70-99) 184 mg/dL (70-99) 143 mg/dL (70-99) Sodium Level 143 mmol/L (136-145) Potassium Level 3.8 mmol/L (3.5-5.1) Chloride Level 108 mmol/L (98-107) Carbon Dioxide Level 27 mmol/L (21-32) Anion Gap 8 (6-14) Blood Urea Nitrogen 19 mg/dL (8-26) Creatinine 1.1 mg/dL (0.7-1.3) Estimated GFR (Cockcroft-Gault) 66.0 Glucose Level 148 mg/dL (70-99) Calcium Level 8.6 mg/dL (8.5-10.1) Magnesium Level 1.9 mg/dL (1.8-2.4) Test 06/10/19 12:50 Glucose (Fingerstick) 154 mg/dL (70-99) Medication Medications Current Medications Lidocaine/ Epinephrine (LIDOCAINE 2%-EPI 1:100,000 multi-dose) 20 ml 1X ONCE IJ Last administered on 06/10/19at 12:18; Start 06/10/19 at 12:00; Stop 06/10/19 at 12:04; Status DC Lidocaine/ Epinephrine (LIDOCAINE 2%-EPI 1:100,000 multi-dose) 20 ml STK-MED ONCE .ROUTE ; Start 06/10/19 at 11:29; Stop 06/10/19 at 11:30; Status DC Metoprolol Tartrate (Lopressor) 25 mg BID PO Last administered on 06/10/19at 13:00; Start 06/09/19 at 21:00 Comment Review of Relevant I have reviewed the following items charity (where applicable) has been applied. JERRELL VELASQUEZ MD Jun 10, 2019 14:57
--- NOTE | 2019-06-10 16:05 | NUR ---
Discharge Note: TIFFANIE HURTADO Discharge instructions and discharge home medications reviewed with [facility] facility at 1455 and a copy given to transport personnel. All questions have been answered and understanding verbalized. The following instructions and handouts were given: Patient to have follow up with Dr. Chung on Jul 28 1:30 pm Watch out for wound infection, fever, drainage on the implant. Meds reviewed with RN Discontinued lines and drains: peripheral IV intact, patient tolerated removal, no complications noted Patient discharged to [facility] via wheelchair, alert and oriented. He left the unit at 1440 accompnaied by transport personnel and family members.
--- NOTE | 2019-06-16 19:27 | PDOC2 ---
NEUROLOGY CONSULT Date of Admission Date of Admission DATE: 06/16/19 TIME: 19:22 Reason for Consult Reason for Consult: GI bleeding. Recent infarcts in the left brachium pontis, and left cerebellar, multiple, 06/08/19. Metabolic encephalopathy. DM. Hyperglycemia. HTN. HLD. CAD. Recent STEMI in 03/21 s/p stent placement. Left eye s/p surgery with dilated pupil since. Cognitive impairment. Shingles, recently. RECOMMENDATIONS/PLAN: He has been treated with Ticagrelol. Continue Lipitor HS. ASA 81 mg daily. Consulted Cardiology and suggested continue Ticagrelor and ASA. Treat medical diseases. Consulted GI. OT/PT. Rehab. Discussed with his again at bedside on 06/16/19. HISTORY OF THE PRESENT ILLNESS: This is a 73-year-old male patient with recent STEMI with cardiac stent placement in 03/21. He developed symptoms of severe dizziness associated with nausea and vomiting on 06/07/19. He was noted to have perspiration during his episodes of dizziness. His symptoms persistent and he is still not able to stand up or walk on 06/08/19. Further evaluation revealed above stroke. He was sent to rehab but had GI bleeding to be admitted this time. PAST MEDICAL HISTORY: Diabetes mellitus, hypertension, hyperlipidemia, coronary artery disease, status post [place], stent deployment on 03/31/2019. He has also chronic constipation and benign prostatic hypertrophy. 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 He is also known to have glaucoma. PAST SURGICAL HISTORY: Left eye corneal transplant. He had ear surgery, hernia repair, and tonsillectomy. He had also PCI with stent deployment in March of this year. ALLERGIES: No known drug allergies. FAMILY HISTORY: His sister at age of 52 because of Parkinson disease, complication of diabetes, has 5 brothers, 1 of them has coronary artery disease and open heart surgery and others have peripheral vascular disease. His father at the age of 66 because of diabetes mellitus and mother at age 66 because of complication of surgery. SOCIAL HISTORY: He is , has no children. He quit smoking in 1991. He used to smoke 4 packs a day and smoked since he was 20 years old. He does not drink alcohol or use any recreational drugs. 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 MEDICATIONS: Refer to MAR REVIEW OF SYSTEMS: Constitutional: No malnutrition, weight loss, cachexia. Head: No traumatic brain or head injury. Skin: No edema, or rash. Ear: No infection. Eyes: No vision loss or color blindness. Nose: No bleeding or purulent discharges. Hearing: No hearing decrease. Neck: No injury. Cardiac: [place], CAD, HTN, HLD. Pulmonary: No COPD. GI: No GI ulcer, GI bleeding. Urinary/genital: No dysuria, incontinence, urinary retention. Endocrinologic: Diabetes Mellitus. Skeletomuscular: No muscular atrophy. Neurological: see HP. Psychiatric: Denies drug use/abuse. Otherwise, not [id number] review of systems. PHYSICAL EXAMINATION: General appearance is in subacute distress. HEENT: Normocephalic and nontraumatic. Left pupil dilated s/p surgery. Nose, ears, and throat are unremarkable. Neck is supple. No lymphadenopathy. No bruits are heard over the carotid artery. No crepitus. Cardiovascular: S1, S2, regular rate and rhythm. Pulmonary: Clear to auscultation bilaterally. Abdomen: Bowel sounds are positive. Abdomen is soft, nontender, and nondistended. Extremities: No rash, lesions, or edema. No restriction of range of motion NEUROLOGICAL EXAMINATION: Alert Partially oriented to time, but knew place and person. Right pupil 2 mm reactive to light. Left 4 mm not reactive to light stimulation. EOMI. CN: Left VII palsy (peripheral type). Muscle tone: within normal. Muscle strength: 5- DTR: 2 Plantar reflex: Neutral response bilaterally Gait: Able to walk with a walker. Sensory exam: no abnormal findings. No other cerebellar signs elicited. F-T-N test fine. Current Medications Current Medications Current Medications Dextrose (Dextrose 50%-Water Syringe) 12.5 gm PRN Q15MIN PRN IV SEE COMMENTS; Start 06/07/19 at 17:00; Stop 06/10/19 at 20:13; Status DC Dextrose 250 ml PRN Q15MIN PRN IV SEE COMMENTS; Start 06/07/19 at 17:00; Status UNV Atorvastatin Calcium (Lipitor) 40 mg QHS PO Last administered on 06/09/19at 21:51; Start 06/07/19 at 21:00; Stop 06/10/19 at 20:13; Status DC Diclofenac Sodium (Voltaren) 1 amy BID TP ; Start 06/07/19 at 21:00; Stop 06/10/19 at 20:13; Status DC Metformin HCl (Glucophage Xr) 500 mg DAILYWBKFT PO Last administered on 06/10/19at 12:58; Start 06/08/19 at 08:00; Stop 06/10/19 at 20:13; Status DC Nitroglycerin (Nitrostat) 0.4 mg PRN Q5MIN PRN SL CHEST PAIN; Start 06/07/19 at 20:45; Stop 06/10/19 at 20:13; Status DC Ticagrelor (Brilinta) 90 mg BID PO Last administered on 06/10/19at 12:59; Start 06/07/19 at 21:00; Stop 06/10/19 at 20:13; Status DC Acyclovir (Zovirax) 400 mg BID PO Last administered on 06/10/19at 12:59; Start 06/07/19 at 21:00; Stop 06/10/19 at 20:13; Status DC Ascorbic Acid (Vitamin C) 500 mg DAILY PO Last administered on 06/10/19 12:58; Start 06/08/19 at 09:00; Stop 06/10/19 at 20:13; Status DC Brimonidine Tartrate (Alphagan) 1 drop BID OU Last administered on 06/10/19at 10:21; Start 06/07/19 at 21:00; Stop 06/10/19 at 20:13; Status DC Vitamin D (Vitamin D3) 1,000 unit DAILY PO Last administered on 06/10/19at 12:59; Start 06/08/19 at 09:00; Stop 06/10/19 at 20:13; Status DC Insulin Human Lispro (HumaLOG) 3 units TIDWMEALS SQ Last administered on 06/10/19at 13:11; Start 06/08/19 at 08:00; Stop 06/10/19 at 20:13; Status DC Insulin Glargine (Lantus Syringe) 9 unit QHS SQ Last administered on 06/09/19at 21:58; Start 06/07/19 at 21:00; Stop 06/10/19 at 20:13; Status DC Multivitamins (Thera M Plus) 1 tab DAILY PO Last administered on 06/10/19at 12:59; Start 06/08/19 at 09:00; Stop 06/10/19 at 20:13; Status DC Non-Formulary Medication (Prednisolone Acetate ) 5 ml DAILY OP ; Start 06/08/19 at 09:00; Status UNV Timolol Maleate (Timoptic 0.5% Ophth) 1 drop BID OU Last administered on 06/09/19at 08:27; Start 06/07/19 at 21:00; Stop 06/09/19 at 14:29; Status DC Aspirin (Children'S Aspirin) 81 mg DAILYWBKFT PO Last administered on 06/10/19at 12:59; Start 06/08/19 at 17:00; Stop 06/10/19 at 20:13; Status DC Metoprolol Tartrate (Lopressor) 25 mg BID PO Last administered on 06/10/19at 13:00; Start 06/09/19 at 21:00; Stop 06/10/19 at 20:13; Status DC Lidocaine/ Epinephrine (LIDOCAINE 2%-EPI 1:100,000 multi-dose) 20 ml STK-MED ONCE .ROUTE ; Start 06/10/19 at 11:29; Stop 06/10/19 at 11:30; Status DC Lidocaine/ Epinephrine (LIDOCAINE 2%-EPI 1:100,000 multi-dose) 20 ml 1X ONCE IJ Last administered on 06/10/19at 12:18; Start 06/10/19 at 12:00; Stop 06/10/19 at 12:04; Status DC Active Scripts Active Nitrostat (Nitroglycerin) 0.4 Mg Tab.subl 0.4 Mg SL PRN Q5MIN PRN Atorvastatin Calcium 40 Mg Tablet 40 Mg PO QHS Brilinta (Ticagrelor) 90 Mg Tablet 90 Mg PO BID Reported Prednisolone Acetate 5 Ml Drops.susp 5 Ml OP DAILY Voltaren (Diclofenac Sodium) 100 Gm Gel..gram. 1 Gm TP BID Multi Vitamin Daily (Multivitamin) 1 Each Tablet 1 Each PO DAILY Vitamin C (Ascorbate Calcium) 500 Mg Tablet 500 Mg PO DAILY Vitamin D (Cholecalciferol (Vitamin D3)) 1,000 Unit Capsule 1 Cap PO DAILY Acyclovir 400 Mg Tablet 400 Mg PO BID Combigan Eye Drops (Brimonidine Tartrate/Timolol) 5 Ml Drops 5 Ml OP BID Basaglar Kwikpen U-100 (Insulin Glargine,Hum.rec.anlog) 100 Unit/1 Ml Insuln.pen 9 Unit SQ HS Novolog (Insulin Aspart) 100 Unit/1 Ml Vial 3 Unit SQ TIDWMEALS Metformin Hcl Er (Metformin Hcl) 500 Mg Tab.er.24h 500 Mg PO DAILYWBKFT Allergies Allergies: Allergies Coded Allergies Type Severity Reaction Last Updated Verified No Known Drug Allergies 07/24/17 No ROS Review of System The patient denies any associated fevers, chills, headache, ear pain, rhinorrhea, sore throat, stiff neck, productive cough, chest pain, shortness of breath, back or flank pain, abdominal pain, nausea, vomiting, diarrhea, constipation, dysuria, rash, numbness, weakness, tingling, incontinence, difficulty ambulating, or diaphoresis. Physical Exam Physical Exam General: Well developed, well nourished, no acute distress, well appearing HEENT: Pupils equally round and reactive to light, EOMI, no discharge, normal conjunctiva Neck: Supple, no nuchal rigidity, no JVD, trachea midline, no tenderness Cardiac: RRR, no murmurs, no gallops, no rubs Chest/Lungs: CTAB, no wheeze, no rhonchi, no crackles Abdomen: soft, non-distended, no guarding, no peritoneal signs, non-tender Back: No tenderness Extremities: no edema, pulses intact, non-tender,capillary refill <3 sec bilateral upper and lower extremities, Neuro: Alert and oriented x 4, no focal deficits, normal speech JERRELL VELASQUEZ MD Jun 16, 2019 19:27
== END 2019-06-10 14:45 | DRG 40 ==
LOC: 6 SOUTH 15:44
PROVIDERS: ADMIT Internal Medicine; ATTEND Internal Medicine
PROC: 0JH602Z Insertion of Monitoring Device into Chest Subcutaneous Tissue and Fascia, Open Approach (ICD-10-PCS; principal; 2019-06-10)
DX: I63.89 Other cerebral infarction (principal); G93.41 Metabolic encephalopathy; I50.32 Chronic diastolic (congestive) heart failure; E11.65 Type 2 diabetes mellitus with hyperglycemia; I11.0 Hypertensive heart disease with heart failure; B02.9 Zoster without complications; E78.5 Hyperlipidemia, unspecified; F17.210 Nicotine dependence, cigarettes, uncomplicated; I25.10 Atherosclerotic heart disease of native coronary artery without angina pectoris; I25.2 Old myocardial infarction; I48.91 Unspecified atrial fibrillation; N40.0 Benign prostatic hyperplasia without lower urinary tract symptoms; Z79.82 Long term (current) use of aspirin; Z82.0 Family history of epilepsy and other diseases of the nervous system; Z82.49 Family history of ischemic heart disease and other diseases of the circulatory system; Z83.3 Family history of diabetes mellitus; Z86.73 Personal history of transient ischemic attack (TIA), and cerebral infarction without residual deficits; Z94.7 Corneal transplant status; Z95.5 Presence of coronary angioplasty implant and graft
CPT/HCPCS: 33282; 36415; 70450; 70551; 80048; 80053; 80061; 82607; 82962; 83735; 83880; 84443; 85025; 85651; 86140; 93880; C1764; C8924; J1815; J3490; 92526; 92610; 97110; 97116; 97530; 97535; G0378

== ENCOUNTER → 2020-10-09 | Outpatient (CLI) | payer MEDICARE, BC ==
[2019-06-16 15:04] VITALS: BP 156/72
[~2020-10-09] MED LIST changes: -DICL100G18 TP; +DICL100G54 TP; +METF-658 PO; -METF500T11 PO; +REGADENOSON 0.4 MG/5 ML DISP.SYRIN. IV ONE
--- NOTE | 2020-10-09 17:21 | CARD ---
MR#: [id number] Date of Study: 10/09/2020 Ordering Physician: AVINASH PARRISH, Referring Physician: AVINASH PARRISH Tech: Madeline Saab [facility] APPROVED REPORT EXAM: Two-dimensional and M-mode echocardiogram with Doppler and color Doppler. Other Information Quality : AverageHR: 65bpm Rhythm : NSR INDICATION Dyspnea CAD RISK FACTORS Hypertension Hyperlipidemia 2D DIMENSIONS RVDd2.6 (2.9-3.5cm)Left Atrium(2D)3.0 (1.6-4.0cm) IVSd1.1 (0.7-1.1cm)Aortic Root(2D)4.1 (2.0-3.7cm) LVDd5.1 (3.9-5.9cm)LVOT Diameter2.1 (1.8-2.4cm) PWd1.0 (0.7-1.1cm)LVDs4.1 (2.5-4.0cm) FS (%) 19.0 %SV48.3 ml Aortic Valve AoV Peak Jh.101.8cm/sAoV VTI22.5cm AO Peak GR.4.1mmHgLVOT Peak Jh.70.9cm/s AO Mean GR.2mmHgAVA (VMAX)2.42cm2 Mitral Valve MV E Enqbtxpb57.8cm/sMV DECEL [id number] MV A Zutsbcqs35.6cm/sE/A Ratio0.6 Pulmonary Valve PV Peak Vnufmwhe25.1cm/s Pulmonary Vein S1 Tcoityaw19.9cm/sD2 Eufngzqn68.3cm/s PVa [id number] LEFT VENTRICLE The left ventricle is normal size. There is normal left ventricular wall thickness. The left ventricu lar systolic function is normal and the ejection fraction is within normal range. Estimated ejection fraction 50-55%. There is normal LV segmental wall motion. Transmitral Doppler flow pattern is Grade I-abnormal relaxation pattern. RIGHT VENTRICLE The right ventricle is normal size. There is normal right ventricular wall thickness. The right ventr icular systolic function is normal. ATRIA The left atrium size is normal. The right atrium size is normal. AORTIC VALVE The aortic valve is normal in structure and function. Doppler and Color Flow revealed no significant aortic regurgitation. There is no significant aortic valvular stenosis. MITRAL VALVE The mitral valve is normal in structure and function. There is no evidence of mitral valve prolapse. There is no mitral valve stenosis. Doppler and Color-flow revealed mild mitral regurgitation. TRICUSPID VALVE The tricuspid valve is normal in structure and function. Doppler and Color Flow revealed no tricuspid valve regurgitation noted. There is no tricuspid valve stenosis. PULMONIC VALVE The pulmonary valve is normal in structure and function. Doppler and Color Flow revealed mild pulmoni c valvular regurgitation. GREAT VESSELS The aortic root is mildly enlarged. The ascending aorta is mildly dilated. The IVC is normal in size and collapses >50% with inspiration. PERICARDIAL EFFUSION There is no evidence of significant pericardial effusion. Critical Notification Critical Value: No <Conclusion> The left ventricle is normal size. The left ventricular systolic function is normal and the ejection fraction is within normal range. Estimated ejection fraction 50-55%. Doppler and Color Flow revealed no significant aortic regurgitation. There is no significant aortic valvular stenosis. Doppler and Color-flow revealed mild mitral regurgitation. Doppler and Color Flow revealed no tricuspid valve regurgitation noted. The aortic root is mildly enlarged. The ascending aorta is mildly dilated. Signed by : Arvind Gerardo MD Electronically Approved : 10/09/2020 17:21:01
--- NOTE | 2020-10-09 17:41 | RAD ---
MR#: [id number] Date of Study: 10/09/2020 Ordering Physician: AVINASH PARRISH, Referring Physician: LIBIA MONTEJO Tech: RT Jg (R) (N) APPROVED REPORT Test Type: Pharmacological Stress Nurse/Tech: Fartun Cook RN Test Indications: CAD Cardiac History: MT, PTCA, Hyperlipidemia, CVA, DM Medications: See Electronic Medical Record Medical History: See Electronic Medical Record Resting ECG: SR Resting Heart Rate: 64 bpm Resting Blood Pressure: 135/70mmHg Pretest Chest Pain: None Nurse/Tech Notes lungs CTA, S1S2 Consent: The procedure was explained to the patient in lay terms. Informed consent was witnessed. Neil eout was entered into [facility]. History and Stress Test performed by SATISH Parra, JANY (R) (N) Pharm. Details Pharmacologic stress testing was performed using 0.4mg per 5ml of regadenoson given intravenously ove r 7-10 seconds. Stress Symptoms No chest pain or symptoms. POST EXERCISE Reason for Termination: Infusion complete Max HR: 101 bpm Max Blood Pressure: 139/62mmHg Blood Pressure response to exercise: Normal blood pressure response during stress. Heart Rate response to exercise: normal response Chest Pain: No. Arrhythmia: No. ST Change: No. INTERPRETATION Stress EKG Conclusion: The resting EKG shows a sinus rhythm with nonspecific ST-T wave changes. The stress EKG shows no significant changes from baseline. No EKG evidence of stress-induced ischemia. Imaging Protocol IMAGE PROTOCOL: Rest Tc-99m/stress Tc-99m 1 day Rest: Stress: Viability: Radiopharm.Tc99m LdhpanbeeIs20t Sestamibi Dose10.5mCi 32mCi Duration 15min. 10min. Img Date 10/09/2020 10/09/2020 Inj-Img [id number]. 60min. Rest Admin Site:IV - Right ForearmAdministrator:SATISH Parra, JANY (R)(N) Stress Admin Site: IV - Right ForearmAdministrator: Debra Art, NMTCB, ARRT (R)(N) STRESS DATA End Diast. Vol.90.0mlAv. Heart Rate85.0bpm End Syst. Vol.24.0mlCO Index BSA0.0L/min Myocardial Bnnx704.0gEject. Nvzfiljq22.0% Stress Rates Pk. Fill Rate2.71EDV/secLVtime Pk. Fill 182.59msec Pk. Empty Rate4.33ESV/secLVtime Pk. Eddmx732.54msec 08/05 Pk. Fill0.51EDV/sec Stress Scores Regional WT0.00Summed WT0.00 Regional WM0.00Summed WM0.00 LV Perfusion The stress scans show a small inferior defect. The rest images show a small inferior defect. Nuclear imaging shows no reversible ischemia. Nuclear imaging shows a fixed inferior defect most consistent with a prior infarct. Wall Motion Left ventricular systolic function is is with normal limits with no regional wall motion abnormalitie s and an ejection fraction of greater than 70%. LV Perf. Quant 17 Seg. SSS11.00 17 Seg. SRS7.00 17 Seg. SDS4.00 Stress Defect Extent (% LAD)0.00Rest Defect Extent (% LAD)0.00Rev. Defect Extent (% LAD)0.00 Stress Defect Extent (% LCX) 47.50Rest Defect Extent (% LCX)38.80Rev. Defect Extent (% LCX)1.30 Stress Defect Extent (% RCA)32.20Rest Defect Extent (% RCA)20.00Rev. Defect Extent (% RCA)0.00 Stress Defect Extent (% CALISTA)21.30Rest Defect Extent (% CALISTA)14.30Rev. Defect Extent (% CALISTA)0.20 Conclusion 1. No EKG evidence of stress-induced ischemia. 2. Nuclear imaging shows no reversible ischemia. 3. Nuclear imaging shows a small fixed inferior defect most consistent with a previous infarct. 4. Left ventricular systolic function is within normal limits with an ejection fraction of greater th an 70%. 5. Moderately low risk Lexiscan nuclear stress test with no reversible ischemia and an ejection fract ion of greater than 70%. Signed by : Arvind Gerardo MD Electronically Approved : 10/09/2020 17:40:34
== END ==
LOC: NM 08:10
PROVIDERS: ATTEND Internal Medicine Cardiovascular Disease
DX: I08.8 Other rheumatic multiple valve diseases (principal); I25.10 Atherosclerotic heart disease of native coronary artery without angina pectoris; E78.5 Hyperlipidemia, unspecified; I25.2 Old myocardial infarction
CPT/HCPCS: 78452; 93017; 93306; A9500; J2785